=== PATIENT | male | born 1955 | race Hispanic/Latino ===

== ENCOUNTER 2019-04-06 15:36 | Emergency (ER) | payer OTHER ==
--- OUTSIDE RECORDS SUMMARY | 2019-04-06 15:39 | XMS REPORT | Clinical Summary ---
:1955 Author Organization [facility] Address [address] [place] [address] Care Team Providers Name Role Phone Pcp, No Primary Care Provider Unavailable Jamie Jordan Unavailable Allergies No Known Allergies Medications Medication Sig Dispensed Refills Start Date End Date Status metFORMIN Take 500 mg by 0 Active (GLUCOPHAGE) 1000 mouth 2 (two) times MG tablet daily with breakfast and dinner . rosuvastatin Take 10 mg by mouth 0 Active (CRESTOR) 10 MG nightly . tablet linagliptin Take 5 mg by mouth 0 Active (TRADJENTA) 5 mg daily. Tab exenatide Inject 0 Active microspheres subcutaneously (BYDUREON SUBQ) every 7 days. aspirin 81 MG EC Take 1 tablet (81 30 tablet 0 10/23/2018 11/23/19 tablet mg total) by mouth 19 daily for 30 days. colchicine Take 1 tablet (0.6 14 tablet 0 10/23/2018 10/22/19 Discontinued (COLCRYS) 0.6 mg mg total) by mouth 19 tablet daily for 14 days. metoprolol 75 mg Take 75 mg by mouth 60 tablet 0 10/22/2018 10/22/19 Discontinued Tab 2 (two) times daily 19 for 30 days. colchicine Take 1 tablet (0.6 14 tablet 0 10/23/2018 11/07/19 (COLCRYS) 0.6 mg mg total) by mouth 19 tablet daily for 14 days. metoprolol Take 75 mg by mouth 60 tablet 0 10/22/2018 11/22/19 tartrate 75 mg 2 (two) times daily 19 Tab for 30 days. acetaminophen-cod Take 1 tablet by 30 tablet 0 10/22/2018 11/01/19 eine (TYLENOL #4) mouth every 4 19 300-60 mg per (four) hours as tablet needed for Pain for up to 10 days. Max Daily Amount: 6 tablets Active Problems Problem Noted Date Hyperlipidemia 10/19/2018 Hypotension 10/18/2018 S/P CABG x 3 10/17/2018 NSTEMI (non-ST elevated myocardial infarction) 10/15/2018 Type 2 diabetes mellitus with complication, without long-term current use 07/2019 of insulin Elevated troponin level 10/14/2018 Acute midline thoracic back pain 10/14/2018 Encounters Date Type Specialty Care Team Description 10/31/2018 Office Visit Cardiology Pantera Mary Postoperative state MD Taylor (Primary Dx) 10/17/2018 Anesthesia Event Nura Arellano 10/17/2018 Surgery [facility] Mary BYPASS,AORTO MD Taylor CORONARY YVONNE/SVG 10/15/2018 Surgery Ad Live L CATH & PCI 10/14/2018 - Hospital Encounter Cardiology Christo Banda Elevated troponin level (Primary Dx); 10/22/2018 MD Alexis Other acute back pain; Deedee Ivis Epigastric pain; Ivana Lorenzo, Acute midline thoracic back pain; NSTEMI (non-ST elevated myocardial infarction) (HCC); Steven Conway Type 2 diabetes mellitus with complication, without long- term current use of insulin (HCC); MD Kathya S/P CABG x 3; Joanne Fischer, Hypotension due to hypovolemia; Post-op pain; Steffen, Fever, unspecified fever cause; Ion Gregg MD 10/14/2018 Orders Only General Internal Medicine 10/14/2018 Travel after 04/05/2018 Family History Medical History Relation Name Comments Heart disease Father Heart disease Mother Stroke Mother Relation Name Status Comments Father Mother Social History Tobacco Use Types Packs/Day Years Used Date Former Smoker 0.75 12 Smokeless Tobacco: Never Used Comments: Quit 30 years ago Alcohol Use Drinks/Week oz/Week Comments Yes occasionally Sex Assigned at Date Recorded Not on file Job Start Date Occupation Industry Not on file Not on file Not on file Travel History Travel Start Travel End No recent travel history available. Last Filed Vital Signs Vital Sign Reading Time Taken Blood Pressure 114/73 10/31/2018 9:58 AM PROGRESS CLERK Pulse 61 10/31/2018 9:58 AM PROGRESS CLERK Temperature 36.2 C (97.2 F) 10/31/2018 9:58 AM PROGRESS CLERK Respiratory Rate 14 10/31/2018 9:58 AM PROGRESS CLERK Oxygen Saturation 95% 10/31/2018 9:58 AM PROGRESS CLERK Inhaled Oxygen Concentration 40% 10/17/2018 8:24 PM PROGRESS CLERK Weight 92.1 kg (203 lb) 10/31/2018 9:58 AM PROGRESS CLERK Height 175.3 cm (5' 9") 10/31/2018 9:58 AM PROGRESS CLERK Body Mass Index 29.98 10/31/2018 9:58 AM PROGRESS CLERK Plan of Treatment Not on file Procedures Procedure Name Priority Date/Time Associated Diagnosis Comments RHYTHM STRIP - SCAN 12/05/2018 5:53 PM CDT REPORT OF PROCEDURE - 10/29/2018 3:21 ENDOSCOPY SCAN PM PROGRESS CLERK CARDIAC CATH REPORT - 10/29/2018 3:21 SCAN PM PROGRESS CLERK RHYTHM STRIP - SCAN 10/29/2018 3:21 PM PROGRESS CLERK VASCULAR DIAGRAM -SCAN 10/29/2018 3:21 PM PROGRESS CLERK VASCULAR DIAGRAM -SCAN 10/29/2018 3:21 PM PROGRESS CLERK VASCULAR DIAGRAM -SCAN 10/26/2018 4:10 PM PROGRESS CLERK POCT-GLUCOSE METER Routine 10/22/2018 12:36 Results for this PM PROGRESS CLERK procedure are in the results section. POCT-GLUCOSE METER Routine 10/22/2018 8:12 Results for this AM PROGRESS CLERK procedure are in the results section. CBC W/PLT COUNT & AUTO Routine 10/22/2018 4:21 Results for this DIFFERENTIAL AM PROGRESS CLERK procedure are in the results section. BASIC METABOLIC PANEL Routine 10/22/2018 4:21 Results for this (7) AM PROGRESS CLERK procedure are in the results section. CBC W/PLT COUNT & AUTO Routine 10/22/2018 4:21 Results for this DIFFERENTIAL AM PROGRESS CLERK procedure are in the results section. POCT-GLUCOSE METER Routine 10/21/2018 9:30 Results for this PM PROGRESS CLERK procedure are in the results section. ECHOCARDIOGRAM REPORT 10/21/2018 7:00 - SCAN PM PROGRESS CLERK POCT-GLUCOSE METER Routine 10/21/2018 6:35 Results for this PM PROGRESS CLERK procedure are in the results section. POCT-GLUCOSE METER Routine 10/21/2018 12:19 Results for this PM PROGRESS CLERK procedure are in the results section. XR CHEST 1 VIEW ALISSON 10/21/2018 12:14 Results for this PORTABLE/BEDSIDE PM PROGRESS CLERK procedure are in the results section. 2D ECHO W/ DOPPLER Routine 10/21/2018 9:23 Results for this (CW/PW/COLOR) AM PROGRESS CLERK procedure are in the results section. POCT-GLUCOSE METER Routine 10/21/2018 8:01 Results for this AM PROGRESS CLERK procedure are in the results section. CBC W/PLT COUNT & AUTO STAT 10/21/2018 6:36 Results for this DIFFERENTIAL AM PROGRESS CLERK procedure are in the results section. MAGNESIUM STAT 10/21/2018 6:36 Results for this AM PROGRESS CLERK procedure are in the results section. BASIC METABOLIC PANEL STAT 10/21/2018 6:36 Results for this (7) AM PROGRESS CLERK procedure are in the results section. CBC W/PLT COUNT & AUTO STAT 10/21/2018 6:36 Results for this DIFFERENTIAL AM PROGRESS CLERK procedure are in the results section. ECG 12-LEAD Routine 10/21/2018 5:50 Results for this AM PROGRESS CLERK procedure are in the results section. POCT-GLUCOSE METER Routine 10/20/2018 9:16 Results for this PM PROGRESS CLERK procedure are in the results section. POCT-GLUCOSE METER Routine 10/20/2018 6:47 Results for this PM PROGRESS CLERK procedure are in the results section. TRANSFUSION SERVICE 10/20/2018 6:00 REPORT - SCAN PM PROGRESS CLERK POCT-GLUCOSE METER Routine 10/20/2018 1:38 Results for this PM PROGRESS CLERK procedure are in the results section. POCT-GLUCOSE METER Routine 10/20/2018 7:51 Results for this AM PROGRESS CLERK procedure are in the results section. CBC W/PLT COUNT & AUTO Routine 10/20/2018 6:04 Results for this DIFFERENTIAL AM PROGRESS CLERK procedure are in the results section. MAGNESIUM Routine 10/20/2018 6:04 Results for this AM PROGRESS CLERK procedure are in the results section. BASIC METABOLIC PANEL Routine 10/20/2018 6:04 Results for this (7) AM PROGRESS CLERK procedure are in the results section. CBC W/PLT COUNT & AUTO Routine 10/20/2018 6:04 Results for this DIFFERENTIAL AM PROGRESS CLERK procedure are in the results section. PREPARE LEUKO-REDUCED STAT 10/19/2018 11:54 Results for this RBC PM PROGRESS CLERK procedure are in the results section. POCT-GLUCOSE METER Routine 10/19/2018 11:05 Results for this PM PROGRESS CLERK procedure are in the results section. POCT-GLUCOSE METER Routine 10/19/2018 6:14 Results for this PM PROGRESS CLERK procedure are in the results section. POCT-GLUCOSE METER Routine 10/19/2018 12:17 Results for this PM PROGRESS CLERK procedure are in the results section. XR CHEST 1 VIEW ALISSON 10/19/2018 9:27 Results for this PORTABLE/BEDSIDE AM PROGRESS CLERK procedure are in the results section. POCT-GLUCOSE METER Routine 10/19/2018 8:18 Results for this AM PROGRESS CLERK procedure are in the results section. ECG 12-LEAD Routine 10/19/2018 7:53 Results for this AM PROGRESS CLERK procedure are in the results section. BASIC METABOLIC PANEL STAT 10/19/2018 6:21 Results for this (7) AM PROGRESS CLERK procedure are in the results section. CBC (HEMOGRAM ONLY) Routine 10/19/2018 6:21 Results for this AM PROGRESS CLERK procedure are in the results section. PHOSPHORUS Routine 10/19/2018 6:21 Results for this AM PROGRESS CLERK procedure are in the results section. MAGNESIUM Routine 10/19/2018 6:21 Results for this AM PROGRESS CLERK procedure are in the results section. POCT-GLUCOSE METER Routine 10/18/2018 9:02 Results for this PM PROGRESS CLERK procedure are in the results section. XR CHEST 1 VIEW STAT 10/18/2018 8:35 Results for this PORTABLE/BEDSIDE PM PROGRESS CLERK procedure are in the results section. POCT-GLUCOSE METER Routine 10/18/2018 7:21 Results for this PM PROGRESS CLERK procedure are in the results section. TRANSFUSION SERVICE 10/18/2018 6:04 REPORT - SCAN PM PROGRESS CLERK POCT-GLUCOSE METER Routine 10/18/2018 1:52 Results for this PM PROGRESS CLERK procedure are in the results section. POCT-GLUCOSE METER Routine 10/18/2018 12:01 Results for this PM PROGRESS CLERK procedure are in the results section. POCT-GLUCOSE METER Routine 10/18/2018 11:08 Results for this AM PROGRESS CLERK procedure are in the results section. POCT-GLUCOSE METER Routine 10/18/2018 9:55 Results for this AM PROGRESS CLERK procedure are in the results section. POCT-GLUCOSE METER Routine 10/18/2018 9:22 Results for this AM PROGRESS CLERK procedure are in the results section. POCT-GLUCOSE METER Routine 10/18/2018 7:16 Results for this AM PROGRESS CLERK procedure are in the results section. MN INSERT Routine 10/18/2018 7:05 Hypotension due to Results for this CATH,ART,PERCUT,CHRISTELLE AM PROGRESS CLERK hypovolemia procedure are in ERM the results section. POCT-GLUCOSE METER Routine 10/18/2018 6:16 Results for this AM PROGRESS CLERK procedure are in the results section. CBC W/PLT COUNT & AUTO STAT 10/18/2018 5:11 Results for this DIFFERENTIAL AM PROGRESS CLERK procedure are in the results section. BASIC METABOLIC PANEL STAT 10/18/2018 5:11 Results for this (7) AM PROGRESS CLERK procedure are in the results section. PHOSPHORUS Routine 10/18/2018 5:11 Results for this AM PROGRESS CLERK procedure are in the results section. GLUCOSE STAT 10/18/2018 5:11 Results for this AM PROGRESS CLERK procedure are in the results section. MAGNESIUM STAT 10/18/2018 5:11 Results for this AM PROGRESS CLERK procedure are in the results section. BLOOD GAS, ARTERIAL STAT 10/18/2018 5:11 Results for this AM PROGRESS CLERK procedure are in the results section. CBC W/PLT COUNT & AUTO STAT 10/18/2018 5:11 Results for this DIFFERENTIAL AM PROGRESS CLERK procedure are in the results section. COMPREHENSIVE STAT 10/18/2018 5:11 Results for this METABOLIC PANEL AM PROGRESS CLERK procedure are in the results section. POCT-GLUCOSE METER Routine 10/18/2018 5:10 Results for this AM PROGRESS CLERK procedure are in the results section. TRANSFUSE STAT 10/18/2018 4:32 LEUKO-REDUCED RED AM PROGRESS CLERK BLOOD CELLS XR CHEST 1 VIEW Routine 10/18/2018 4:15 Results for this PORTABLE/BEDSIDE AM PROGRESS CLERK procedure are in the results section. POCT-GLUCOSE METER Routine 10/18/2018 2:56 Results for this AM PROGRESS CLERK procedure are in the results section. POCT-GLUCOSE METER Routine 10/18/2018 1:42 Results for this AM PROGRESS CLERK procedure are in the results section. XR CHEST 1 VIEW STAT 10/18/2018 12:19 Results for this PORTABLE/BEDSIDE AM PROGRESS CLERK procedure are in the results section. POCT-GLUCOSE METER Routine 10/17/2018 11:28 Results for this PM PROGRESS CLERK procedure are in the results section. HEMOGLOBIN AND STAT 10/17/2018 10:27 Results for this HEMATOCRIT PM PROGRESS CLERK procedure are in the results section. BLOOD GAS, ARTERIAL STAT 10/17/2018 10:00 Results for this PM PROGRESS CLERK procedure are in the results section. POCT-GLUCOSE METER Routine 10/17/2018 9:38 Results for this PM PROGRESS CLERK procedure are in the results section. MAGNESIUM STAT 10/17/2018 9:26 Results for this PM PROGRESS CLERK procedure are in the results section. POCT-GLUCOSE METER Routine 10/17/2018 9:05 Results for this PM PROGRESS CLERK procedure are in the results section. MAGNESIUM STAT 10/17/2018 8:50 Results for this PM PROGRESS CLERK procedure are in the results section. POCT-GLUCOSE METER Routine 10/17/2018 8:02 Results for this PM PROGRESS CLERK procedure are in the results section. CALCIUM, IONIZED STAT 10/17/2018 7:34 Results for this PM PROGRESS CLERK procedure are in the results section. HGB/HCT (H&H) - STAT STAT 10/17/2018 7:33 Results for this LAB PM PROGRESS CLERK procedure are in the results section. GLUCOSE-STAT LAB STAT 10/17/2018 7:33 Results for this PM PROGRESS CLERK procedure are in the results section. POTASSIUM-STAT LAB STAT 10/17/2018 7:33 Results for this PM PROGRESS CLERK procedure are in the results section. SODIUM NA-STAT LAB STAT 10/17/2018 7:33 Results for this PM PROGRESS CLERK procedure are in the results section. BLOOD GAS, ARTERIAL STAT 10/17/2018 7:33 Results for this PM PROGRESS CLERK procedure are in the results section. RRL CRITICAL LABS STAT 10/17/2018 7:33 Results for this (ABG,NA,K,H&H,GLUCOSE) PM PROGRESS CLERK procedure are in the results section. BLOOD GAS, ARTERIAL STAT 10/17/2018 6:25 Results for this PM PROGRESS CLERK procedure are in the results section. HEMOGLOBIN AND STAT 10/17/2018 6:25 Results for this HEMATOCRIT PM PROGRESS CLERK procedure are in the results section. BLOOD GAS, ARTERIAL STAT 10/17/2018 5:14 Results for this PM PROGRESS CLERK procedure are in the results section. POCT-GLUCOSE METER Routine 10/17/2018 4:45 Results for this PM PROGRESS CLERK procedure are in the results section. LACTIC ACID, ARTERIAL Routine 10/17/2018 2:44 Results for this PM PROGRESS CLERK procedure are in the results section. OXYGEN SATURATION, ALISSON 10/17/2018 2:44 Results for this MEASURED PM PROGRESS CLERK procedure are in the results section. CBC W/PLT COUNT & AUTO STAT 10/17/2018 2:29 Results for this DIFFERENTIAL PM PROGRESS CLERK procedure are in the results section. CBC W/PLT COUNT & AUTO STAT 10/17/2018 2:29 Results for this DIFFERENTIAL PM PROGRESS CLERK procedure are in the results section. PHOSPHORUS STAT 10/17/2018 2:29 Results for this PM PROGRESS CLERK procedure are in the results section. MAGNESIUM STAT 10/17/2018 2:29 Results for this PM PROGRESS CLERK procedure are in the results section. BLOOD GAS, ARTERIAL STAT 10/17/2018 2:29 Results for this PM PROGRESS CLERK procedure are in the results section. BASIC METABOLIC PANEL STAT 10/17/2018 2:29 Results for this (7) PM PROGRESS CLERK procedure are in the results section. XR CHEST 1 VIEW STAT 10/17/2018 2:18 Results for this PORTABLE/BEDSIDE PM PROGRESS CLERK procedure are in the results section. HGB/HCT (H&H) - STAT STAT 10/17/2018 1:26 Results for this LAB PM PROGRESS CLERK procedure are in the results section. GLUCOSE-STAT LAB STAT 10/17/2018 1:26 Results for this PM PROGRESS CLERK procedure are in the results section. POTASSIUM-STAT LAB STAT 10/17/2018 1:26 Results for this PM PROGRESS CLERK procedure are in the results section. SODIUM NA-STAT LAB STAT 10/17/2018 1:26 Results for this PM PROGRESS CLERK procedure are in the results section. BLOOD GAS, ARTERIAL STAT 10/17/2018 1:26 Results for this PM PROGRESS CLERK procedure are in the results section. CALCIUM, IONIZED STAT 10/17/2018 1:26 Results for this PM PROGRESS CLERK procedure are in the results section. RRL CRITICAL LABS STAT 10/17/2018 1:26 Results for this (ABG,NA,K,H&H,GLUCOSE) PM PROGRESS CLERK procedure are in the results section. POCT-ACT Routine 10/17/2018 1:25 Results for this PM PROGRESS CLERK procedure are in the results section. POCT-ACT Routine 10/17/2018 12:34 Results for this PM PROGRESS CLERK procedure are in the results section. HGB/HCT (H&H) - STAT STAT 10/17/2018 12:31 Results for this LAB PM PROGRESS CLERK procedure are in the results section. GLUCOSE-STAT LAB STAT 10/17/2018 12:31 Results for this PM PROGRESS CLERK procedure are in the results section. POTASSIUM-STAT LAB STAT 10/17/2018 12:31 Results for this PM PROGRESS CLERK procedure are in the results section. SODIUM NA-STAT LAB STAT 10/17/2018 12:31 Results for this PM PROGRESS CLERK procedure are in the results section. BLOOD GAS, ARTERIAL STAT 10/17/2018 12:31 Results for this PM PROGRESS CLERK procedure are in the results section. RRL CRITICAL LABS STAT 10/17/2018 12:31 Results for this (ABG,NA,K,H&H,GLUCOSE) PM PROGRESS CLERK procedure are in the results section. POCT-ACT Routine 10/17/2018 12:03 Results for this PM PROGRESS CLERK procedure are in the results section. HGB/HCT (H&H) - STAT STAT 10/17/2018 11:59 Results for this LAB AM PROGRESS CLERK procedure are in the results section. GLUCOSE-STAT LAB STAT 10/17/2018 11:59 Results for this AM PROGRESS CLERK procedure are in the results section. POTASSIUM-STAT LAB STAT 10/17/2018 11:59 Results for this AM PROGRESS CLERK procedure are in the results section. SODIUM NA-STAT LAB STAT 10/17/2018 11:59 Results for this AM PROGRESS CLERK procedure are in the results section. BLOOD GAS, ARTERIAL STAT 10/17/2018 11:59 Results for this AM PROGRESS CLERK procedure are in the results section. RRL CRITICAL LABS STAT 10/17/2018 11:59 Results for this (ABG,NA,K,H&H,GLUCOSE) AM PROGRESS CLERK procedure are in the results section. POCT-ACT Routine 10/17/2018 11:42 Results for this AM PROGRESS CLERK procedure are in the results section. HGB/HCT (H&H) - STAT STAT 10/17/2018 11:08 Results for this LAB AM PROGRESS CLERK procedure are in the results section. GLUCOSE-STAT LAB STAT 10/17/2018 11:08 Results for this AM PROGRESS CLERK procedure are in the results section. POTASSIUM-STAT LAB STAT 10/17/2018 11:08 Results for this AM PROGRESS CLERK procedure are in the results section. SODIUM NA-STAT LAB STAT 10/17/2018 11:08 Results for this AM PROGRESS CLERK procedure are in the results section. BLOOD GAS, ARTERIAL STAT 10/17/2018 11:08 Results for this AM PROGRESS CLERK procedure are in the results section. CALCIUM, IONIZED STAT 10/17/2018 11:08 Results for this AM PROGRESS CLERK procedure are in the results section. RRL CRITICAL LABS STAT 10/17/2018 11:08 Results for this (ABG,NA,K,H&H,GLUCOSE) AM PROGRESS CLERK procedure are in the results section. ENDOSCOPIC 10/17/2018 9:29 Coronary artery HARVEST,VEIN AM PROGRESS CLERK disease without angina pectoris, unspecified vessel or lesion type, unspecified whether la posta or transplanted heart Case Notes 2.5 HRS PER GABRIEL Special Needs (WANTS THIS CASE 1ST AT 10:00AM) BYPASS,AORTO CORONARY YVONNE/SVG 10/17/2018 9:29 AM PROGRESS CLERK Coronary artery disease without angina pectoris, unspecified vessel or lesion type, unspecified whether la posta or transplanted heart Case Notes 2.5 HRS PER GABRIEL Special Needs (WANTS THIS CASE 1ST AT 10:00AM) POCT-GLUCOSE METER Routine 10/17/2018 7:41 Results for this AM PROGRESS CLERK procedure are in the results section. APTT Routine 10/17/2018 4:18 Results for this AM PROGRESS CLERK procedure are in the results section. PLATELET COUNT Routine 10/17/2018 4:02 Results for this AM PROGRESS CLERK procedure are in the results section. BASIC METABOLIC PANEL Routine 10/17/2018 4:02 Results for this (7) AM PROGRESS CLERK procedure are in the results section. POCT-GLUCOSE METER Routine 10/16/2018 9:14 Results for this PM PROGRESS CLERK procedure are in the results section. PROTHROMBIN TIME/INR Routine 10/16/2018 6:38 Results for this PM PROGRESS CLERK procedure are in the results section. APTT Routine 10/16/2018 6:38 Results for this PM PROGRESS CLERK procedure are in the results section. POCT-GLUCOSE METER Routine 10/16/2018 6:16 Results for this PM PROGRESS CLERK procedure are in the results section. TRANSFUSION SERVICE 10/16/2018 6:00 REPORT - SCAN PM PROGRESS CLERK URINALYSIS W/ Routine 10/16/2018 5:29 Results for this MICROSCOPIC PM PROGRESS CLERK procedure are in the results section. CAROTID DOPPLER Routine 10/16/2018 3:13 Results for this BILATERAL PM PROGRESS CLERK procedure are in the results section. POCT-GLUCOSE METER Routine 10/16/2018 12:52 Results for this PM PROGRESS CLERK procedure are in the results section. APTT Routine 10/16/2018 12:43 Results for this PM PROGRESS CLERK procedure are in the results section. POCT-GLUCOSE METER Routine 10/16/2018 7:22 Results for this AM PROGRESS CLERK procedure are in the results section. PLATELET COUNT Routine 10/16/2018 5:29 Results for this AM PROGRESS CLERK procedure are in the results section. APTT Routine 10/16/2018 5:29 Results for this AM PROGRESS CLERK procedure are in the results section. BASIC METABOLIC PANEL Routine 10/16/2018 5:29 Results for this (7) AM PROGRESS CLERK procedure are in the results section. POCT-GLUCOSE METER Routine 10/16/2018 5:27 Results for this AM PROGRESS CLERK procedure are in the results section. POCT-GLUCOSE METER Routine 10/15/2018 11:34 Results for this PM PROGRESS CLERK procedure are in the results section. APTT Routine 10/15/2018 11:18 Results for this PM PROGRESS CLERK procedure are in the results section. TROPONIN I Routine 10/15/2018 6:45 Results for this PM PROGRESS CLERK procedure are in the results section. ECHOCARDIOGRAM REPORT - 10/15/2018 6:20 SCAN PM PROGRESS CLERK POCT-GLUCOSE METER Routine 10/15/2018 5:24 Results for this PM PROGRESS CLERK procedure are in the results section. 2D ECHO W/ DOPPLER Routine 10/15/2018 3:20 Results for this (CW/PW/COLOR) PM PROGRESS CLERK procedure are in the results section. L CATH & PCI 10/15/2018 12:14 Coronary artery PM PROGRESS CLERK disease involving la posta heart with angina pectoris, unspecified vessel or lesion type (HCC) TROPONIN I Routine 10/15/2018 9:17 Results for this AM PROGRESS CLERK procedure are in the results section. APTT Routine 10/15/2018 9:17 Results for this AM PROGRESS CLERK procedure are in the results section. ABORH, MANUAL STAT 10/15/2018 6:08 Results for this AM PROGRESS CLERK procedure are in the results section. TROPONIN I Routine 10/15/2018 6:08 Results for this AM PROGRESS CLERK procedure are in the results section. POCT-GLUCOSE METER Routine 10/15/2018 5:58 Results for this AM PROGRESS CLERK procedure are in the results section. ECG 12-LEAD Routine 10/15/2018 5:57 Results for this AM PROGRESS CLERK procedure are in the results section. ECG 12-LEAD Routine 10/15/2018 5:57 AM PROGRESS CLERK Procedure Note - Interface, External Ris In - 10/15/2018 6:05 AM PROGRESS CLERK Ventricular Rate 73 BPM Atrial Rate 73 BPM P-R Interval 136 ms QRS Duration 82 ms Q-T Interval 414 ms QTC Calculation(Bazett) 456 ms P [place] 45 degrees R [place] 32 degrees T [place] 51 degrees Normal sinus rhythm Normal ECG When compared with ECG of 14-OCT-2018 22:56, No significant change was found TYPE AND SCREEN, AUTOMATED Routine 10/15/2018 2:19 AM PROGRESS CLERK APTT Routine 10/15/2018 2:19 AM PROGRESS CLERK LIPID PANEL Routine 10/15/2018 2:19 AM PROGRESS CLERK BASIC METABOLIC PANEL (7) Routine 10/15/2018 2:19 AM PROGRESS CLERK CBC W/PLT COUNT & AUTO Routine 10/15/2018 12:07 AM PROGRESS CLERK Results for this DIFFERENTIAL procedure are in the results section. B-TYPE NATRIURETIC FACTOR Routine 10/15/2018 12:07 AM PROGRESS CLERK Results for this (BNP) procedure are in the results section. TSH/FREE T4 IF INDICATED Routine 10/15/2018 12:07 AM PROGRESS CLERK CBC W/PLT COUNT & AUTO Routine 10/15/2018 12:07 AM PROGRESS CLERK Results for this DIFFERENTIAL procedure are in the results section. MAGNESIUM Routine 10/15/2018 12:07 AM PROGRESS CLERK HEMOGLOBIN A1C Routine 10/15/2018 12:07 AM PROGRESS CLERK TROPONIN I Routine 10/15/2018 12:07 AM PROGRESS CLERK ECG 12-LEAD Routine 10/14/2018 10:56 PM PROGRESS CLERK ECG 12-LEAD Routine 10/14/2018 10:56 PM PROGRESS CLERK Procedure Note - Interface, External Ris In - 10/14/2018 11:03 PM PROGRESS CLERK Ventricular Rate 80 BPM Atrial Rate 80 BPM P-R Interval 132 ms QRS Duration 80 ms Q-T Interval 408 ms QTC Calculation(Bazett) 470 ms P [place] 26 degrees R [place] 29 degrees T [place] 49 degrees Normal sinus rhythm Normal ECG No previous ECGs available XR CHEST 2 VIEWS STAT 10/14/2018 6:46 PM PROGRESS CLERK POCT CBC (HEMOGRAM) Routine 10/14/2018 6:30 PM PROGRESS CLERK POCT RAPID TROPONIN I Routine 10/14/2018 6:30 PM PROGRESS CLERK POCT BASIC METABOLIC PANEL Routine 10/14/2018 6:30 PM PROGRESS CLERK ECG 12-LEAD Routine 10/14/2018 6:24 PM PROGRESS CLERK after 04/05/2018 Results RHYTHM STRIP - SCAN (12/05/2018 5:53 PM CDT)Only the most recent of2 resultswithin the time period is included. Narrative Performed At EKG-SCANNED (10/29/2018 3:21 PM PROGRESS CLERK) Narrative Performed At CARDIAC CATH REPORT - SCAN (10/29/2018 3:21 PM PROGRESS CLERK) Narrative Performed At VASCULAR DIAGRAM -SCAN (10/29/2018 3:21 PM PROGRESS CLERK)Only the most recent of3 resultswithin the time period is included. Narrative Performed At POC-Glucose meter (10/22/2018 12:36 PM PROGRESS CLERK)Only the most recent of40 resultswithin the time period is included. POC-Glucose Meter 165 (H)Comment: TESTED AT 70 - 110 mg/dL [address] [address] Specimen Blood Performing Organization Address City/State/Zipcode Phone Number [address] [address] CENTER CBC with platelet count + automated diff (10/22/2018 4:21 AM PROGRESS CLERK)Only the most recent of6 resultswithin the time period is included. WBC 5.1 3.5 - 10.5 K/L [facility] RBC 4.22 (L) 4.63 - 6.08 M/L [facility] Hemoglobin 12.9 (L) 13.7 - 17.5 GM/DL [facility] Hematocrit 39.4 (L) 40.1 - 51.0 % [facility] MCV 93.4 (H) 79.0 - 92.2 fL [facility] MCH 30.6 25.7 - 32.2 pg [facility] MCHC 32.7 32.3 - 36.5 GM/DL [facility] RDW 13.3 11.6 - 14.4 % [facility] Platelets 294 150 - 450 K/CU MM [facility] MPV 9.0 (L) 9.4 - 12.4 fL [facility] nRBC 0 0 - 0 /100 WBC [facility] % Neutros 52 % [facility] % Lymphs 28 % [facility] % Monos 12 % [facility] % Eos 6 % [facility] % Baso 1 % [facility] # Neutros 2.69 1.78 - 5.38 K/L [facility] # Lymphs 1.43 1.32 - 3.57 K/L [facility] # Monos 0.63 0.30 - 0.82 K/L [facility] # Eos 0.33 0.04 - 0.54 K/L [facility] # Baso 0.04 0.01 - 0.08 K/L [facility] Immature Granulocytes-Relative 0 0 - 1 % [facility] Specimen Blood Performing Organization Address City/State/Zipcode Phone Number [facility] [address] [place] [address] CENTER Basic Metabolic Panel (10/22/2018 4:21 AM PROGRESS CLERK)Only the most recent of9 resultswithin the time period is included. Sodium 138 136 - 145 meq/L [facility] Potassium 3.6 3.5 - 5.1 meq/L [facility] Chloride 105 98 - 107 meq/L [facility] CO2 23 22 - 29 meq/L [facility] BUN 9 7 - 21 mg/dL [facility] Creatinine 0.76 0.57 - 1.25 mg/dL [facility] Glucose 139 (H) 70 - 105 mg/dL [facility] Calcium 8.7 8.4 - 10.2 mg/dL [facility] EGFR Comment: INSUFFICIENT CLINICAL mL/min/1.73 sq m [facility] DATA TO CALCULATE ESTIMATED [facility] GFR. Specimen Blood Performing Organization Address City/State/Zipcode Phone Number [facility] [address] [place] [address] [phone] CENTER ECHOCARDIOGRAM REPORT - SCAN (10/21/2018 7:00 PM PROGRESS CLERK) Narrative Performed At XR chest 1 view portable / bedside (10/21/2018 12:14 PM PROGRESS CLERK)Only the most recent of6 resultswithin the time period is included. Specimen Narrative Performed At FINAL REPORT [facility] TECHNIQUE: Frontal view of the chest. INDICATION: 63-year-old man with wheezing. COMPARISON: Chest radiograph 10/19/2018. FINDINGS: LINES/TUBES: None. LUNGS: Persistent low lung volumes with streaky bibasilar atelectasis. No new consolidation or pulmonary edema. PLEURA: No pneumothorax or significant pleural effusion. HEART AND MEDIASTINUM: The cardiomediastinal silhouette is unchanged. Atherosclerotic calcifications in the thoracic aorta. SOFT TISSUES AND BONES: Unremarkable. IMPRESSION: No significant change since 10/19/2018. Signed: Sherwin Kohli MD Report Verified Date/Time:10/21/2018 13:58:52 Reading Location: [address] Ortho Consult Reading Room Procedure Note Interface, External Ris In - 10/21/2018 2:01 PM PROGRESS CLERK FINAL REPORT TECHNIQUE: Frontal view of the chest. INDICATION: 63-year-old man with wheezing. COMPARISON: Chest radiograph 10/19/2018. FINDINGS: LINES/TUBES: None. LUNGS: Persistent low lung volumes with streaky bibasilar atelectasis. No new consolidation or pulmonary edema. PLEURA: No pneumothorax or significant pleural effusion. HEART AND MEDIASTINUM: The cardiomediastinal silhouette is unchanged. Atherosclerotic calcifications in the thoracic aorta. SOFT TISSUES AND BONES: Unremarkable. IMPRESSION: No significant change since 10/19/2018. Signed: Sherwin Kohli MD Report Verified Date/Time: 10/21/2018 13:58:52 Reading Location: [facility] B1 [id number] Ortho Consult Reading Room Performing Organization Address City/State/Zipcode Phone Number GE RIS 2D Echo W/Doppler(CW/PW/Color) (10/21/2018 9:23 AM PROGRESS CLERK) Ejection Fraction [facility] Specimen Narrative Performed At Transthoracic Echocardiography Report (TTE) [facility] Demographics Patient Name CALVIN, Date of Study 10/21/2018 DAVIN [id number] GenderMale Visit Number [id number] Unknown [id number] Room Number 1118 Number Date of Birth1955Referring Physician Dana Martinez MD Age63 year(s)Clinical Marketing Manager Pelon Felton [facility] AnalystIzoAnnika Hernandez MD Procedure Type of Study TTE procedure:2DECHO W DOPPLER(CW/PW/COLOR) (Routine) Indications:Coronary artery disease. Height: 69 inches Weight: 95.25 kg (210 lbs) BSA: 2.11 m^2 BMI: 31.01 kg/m^2 HR: 105 bpm BP: 114/72 mmHg Summary The left ventricle is chamber size (by PSLAX dimension) is normal (male - LVIDd 4.2-5.8cm) . Normal LV wall thickness. Septal motion is abnormal, likely related to prior cardiac surgery . The other segments contract normally. Global LV systolic function normal . Estimated LVEF by qualitative assessment is normal (>60%) . LV endocardium is adequately visualized with IV ultrasound enhancing agent. Grade 1 diastolic dysfunction (impaired relaxation and low-normal LA pressure). Normal (cardiac index 2-3 L/min/m2) cardiac output state at rest is noted. No significant pericardial effusion is visualized. Technically fair exam. Previous Study In comparison with the prior exam on 10-15-18 there are no significant changes. Signature Findings Left Ventricle The left ventricle is chamber size (by PSLAX di mension) is normal (male - LVIDd 4.2-5.8cm) . No rmal LV wall thickness. Septal motion is ab normal, likely related to prior cardiac surgery . Th e other segments contract normally. Global LV sy stolic function normal . Estimated LVEF by qu alitative assessment is normal (>60%) . LV en docardium is adequately visualized with IV ul trasound enhancing agent. Grade 1 diastolic dy sfunction (impaired relaxation and low-normal LA pr essure). Normal (cardiac index 2-3 L/min/m2) ca rdiac output state at rest is noted. Left AtriumLA size is normal (16-34 ml/m2) . Right VentricleRV chamber size is mildly enlarged . Gl obal RV systolic function is normal . Right Atrium RA cavity size is normal . Aortic Valve Normal AoV structure and function. Mitral Valve Mild MV leaflet thickening. Mi ld mitral annular calcification. Tricuspid ValveUnable to estimate peak systolic PA pressure; in adequate TR velocity signal. No evidence of tricuspid regurgitation. Pulmonic Valve Normal PV structure and function by limited views an d Doppler. A trace of pulmonary regurgitation. AortaAortic root size (SInus of Valsalva diameter) is izaiah rderline dilated . PericardiumNo significant pericardial effusion is visualized. IVC/SVC/PA/PV/PleuralThe estimated RA pressure by IVC dynamics in determinate . Th e inferior vena cava is not visualized. Chambers/Structures Left Atrium LA Volume: 51.63 ml LA Area: 19.95 cm^2 LA Vol. Index: 24 ml/m^2 Left Ventricle LVIDd: 4.48 cm LV Septum Diastolic: 0.96 cm LV PW Diastolic: 0.87 cm LVOT Diameter: 2.17 cm Aorta Ao Root S of Stacey.: 3.55 cm Doppler/Quantitative Measurements Mitral Valve MV Peak E-Wave: 0.56 m/sMV Peak A-Wave: 0.9 m/s E/A Ratio: 0.62 Peak Gradient: 1.25 mmHg Deceleration Time: 262 msec MV Lucas. Peak: Tissue Doppler E' Lateral Velocity: 0.11 m/s E/E': 5.07 LVOT Peak Velocity: 1.01 m/sPeak Gradient: 4.1 mmHg Mean Velocity: 0.69 m/sMean Gradient: 2.1 mmHg LVOT Diameter: 2.17 cm LVOT VTI: 16.05 cm LVOT Area: 3.7 cm^2LVOT SV:59.33 ml LVOT CO: 6.23 l/minLVOT CI: 2.95 l/min/m^2 Procedure Note Interface, External Ris In - 10/21/2018 6:07 PM PROGRESS CLERK Transthoracic Echocardiography Report (TTE) Demographics Patient Name [facility], Date of Study 10/21/2018 DAVIN Gender Male Visit Number [id number] Race Unknown Room Number 1118 Number Date of 1955 Referring Physician Dana Martinez MD Age 63 year(s) Clinical Marketing Manager Pelon Felton [facility] Bonbon Dipper Danni Gary Interpreting Annika Light Physician Procedure Type of Study TTE procedure:2DECHO W DOPPLER(CW/PW/COLOR) (Routine) Indications:Coronary artery disease. Height: 69 inches Weight: 95.25 kg (210 lbs) BSA: 2.11 m^2 BMI: 31.01 kg/m^2 HR: 105 bpm BP: 114/72 mmHg Summary The left ventricle is chamber size (by PSLAX dimension) is normal (male - LVIDd 4.2-5.8cm) . Normal LV wall thickness. Septal motion is abnormal, likely related to prior cardiac surgery . The other segments contract normally. Global LV systolic function normal . Estimated LVEF by qualitative assessment is normal (>60%) . LV endocardium is adequately visualized with IV ultrasound enhancing agent. Grade 1 diastolic dysfunction (impaired relaxation and low-normal LA pressure). Normal (cardiac index 2-3 L/min/m2) cardiac output state at rest is noted. No significant pericardial effusion is visualized. Technically fair exam. Previous Study In comparison with the prior exam on 10-15-18 there are no significant changes. Signature Findings Left Ventricle The left ventricle is chamber size (by PSLAX dimension) is normal (male - LVIDd 4.2-5.8cm) . Normal LV wall thickness. Septal motion is abnormal, likely related to prior cardiac surgery . The other segments contract normally. Global LV systolic function normal . Estimated LVEF by qualitative assessment is normal (>60%) . LV endocardium is adequately visualized with IV ultrasound enhancing agent. Grade 1 diastolic dysfunction (impaired relaxation and low-normal LA pressure). Normal (cardiac index 2-3 L/min/m2) cardiac output state at rest is noted. Left Atrium LA size is normal (16-34 ml/m2) . Right Ventricle RV chamber size is mildly enlarged . Global RV systolic function is normal . Right Atrium RA cavity size is normal . Aortic Valve Normal AoV structure and function. Mitral Valve Mild MV leaflet thickening. Mild mitral annular calcification. Tricuspid Valve Unable to estimate peak systolic PA pressure; inadequate TR velocity signal. No evidence of tricuspid regurgitation. Pulmonic Valve Normal PV structure and function by limited views and Doppler. A trace of pulmonary regurgitation. Aorta Aortic root size (SInus of Valsalva diameter) is borderline dilated . Pericardium No significant pericardial effusion is visualized. IVC/SVC/PA/PV/Pleural The estimated RA pressure by IVC dynamics indeterminate . The inferior vena cava is not visualized. Chambers/Structures Left Atrium LA Volume: 51.63 ml LA Area: 19.95 cm^2 LA Vol. Index: 24 ml/m^2 Left Ventricle LVIDd: 4.48 cm LV Septum Diastolic: 0.96 cm LV PW Diastolic: 0.87 cm LVOT Diameter: 2.17 cm Aorta Ao Root S of Stacey.: 3.55 cm Doppler/Quantitative Measurements Mitral Valve MV Peak E-Wave: 0.56 m/s MV Peak A-Wave: 0.9 m/s E/A Ratio: 0.62 Peak Gradient: 1.25 mmHg Deceleration Time: 262 msec MV Lucas. Peak: Tissue Doppler E' Lateral Velocity: 0.11 m/s E/E': 5.07 LVOT Peak Velocity: 1.01 m/s Peak Gradient: 4.1 mmHg Mean Velocity: 0.69 m/s Mean Gradient: 2.1 mmHg LVOT Diameter: 2.17 cm LVOT VTI: 16.05 cm LVOT Area: 3.7 cm^2 LVOT SV:59.33 ml LVOT CO: 6.23 l/min LVOT CI: 2.95 l/min/m^2 Performing Organization Address City/[facility] Phone Number [facility] Magnesium (10/21/2018 6:36 AM PROGRESS CLERK)Only the most recent of8 resultswithin the time period is included. Magnesium 2.0 1.6 - 2.6 mg/dL [facility] Specimen Blood Performing Organization Address [facility] Phone Number [facility] [address] [place] [address] CENTER ECG 12 lead (10/21/2018 5:50 AM PROGRESS CLERK)Only the most recent of5 resultswithin the time period is included. Specimen Narrative Performed At Ventricular Rate 138 BPM GE MUSE Atrial Rate 144 BPM QRS Duration 80 ms Q-T Interval 294 ms QTC Calculation(Bazett) 445 ms R [place] 60 degrees T [place] 65 degrees Atrial fibrillation with rapid ventricular response with premature ventricular or aberrantly conducted complexes Abnormal ECG Confirmed by MD GABBY, RETA ([id number]) on 10/21/2018 3:45:13 PM Procedure Note Interface, External Ris In - 10/21/2018 3:45 PM PROGRESS CLERK Ventricular Rate 138 BPM Atrial Rate 144 BPM QRS Duration 80 ms Q-T Interval 294 ms QTC Calculation(Bazett) 445 ms R [place] 60 degrees T [place] 65 degrees Atrial fibrillation with rapid ventricular response with premature ventricular or aberrantly conducted complexes Abnormal ECG Confirmed by MD GABBY, RETA ([id number]) on 10/21/2018 3:45:13 PM Performing Organization Address City/State/Zipcode Phone Number [employer] TRANSFUSION SERVICE REPORT - SCAN (10/20/2018 6:00 PM PROGRESS CLERK)Only the most recent of3 resultswithin the time period is included. Narrative Performed At Prepare Leuko-Red RBC (10/19/2018 11:54 PM PROGRESS CLERK) CROSSMATCH COMPATIBLE SAFETRACE TX Unit ABO A Pos SAFETRACE TX UNIT NUMBER [id number] SAFETRACE TX Status TX_TIMEINCHART SAFETRACE TX Blood Bank Product RED BLOOD CELLS SAFETRACE TX PRODUCT CODE [id number] SAFETRACE TX Specimen Other Performing Organization Address [facility] Phone Number SAFETRACE TX CBC (Hemogram only) (10/19/2018 6:21 AM PROGRESS CLERK) WBC 10.5 3.5 - 10.5 K/L [facility] RBC 4.49 (L) 4.63 - 6.08 M/L [facility] Hemoglobin 13.7 13.7 - 17.5 GM/DL [facility] Hematocrit 42.3 40.1 - 51.0 % [facility] MCV 94.2 (H) 79.0 - 92.2 fL [facility] MCH 30.5 25.7 - 32.2 pg [facility] MCHC 32.4 32.3 - 36.5 GM/DL [facility] RDW 13.6 11.6 - 14.4 % [facility] Platelets 186 150 - 450 K/CU MM [facility] MPV 9.6 9.4 - 12.4 fL [facility] nRBC 0 0 - 0 /100 WBC [facility] Specimen Blood Performing Organization Address City/[facility]/Zipcode Phone Number [place] [id number] [place] [address] [phone] CENTER Phosphorus (10/19/2018 6:21 AM PROGRESS CLERK)Only the most recent of3 resultswithin the time period is included. Phosphorus 2.1 (L) 2.3 - 4.7 mg/dL [facility] Specimen Blood Performing Organization Address [facility] Phone Number [address] [address] [place] Insert Arterial Line (10/18/2018 7:05 AM PROGRESS CLERK) Narrative Performed At Ruthann Glover PA-C 10/18/20187:07 AM Insert Arterial Line Date/Time: 10/18/2018 7:05 AM Performed by: Ruthann Glover PA-C Authorized by: Ruthann Glover PA-C Consent: The procedure was performed in an emergent situation. Required items: required blood products, implants, devices, and special equipment available Patient identity confirmed: verbally with patient and arm band Time out: Immediately prior to procedure a "time out" was called to verify the correct patient, procedure, equipment, customer support engineer and site/side marked as required. Preparation: Patient was prepped and draped in the usual sterile fashion. Indications: multiple ABGs and hemodynamic monitoring Location: left radial Seldinger technique: Seldinger technique used Number of attempts: 1 Post-procedure: dressing applied Post-procedure CMS: normal and unchanged Patient tolerance: Patient tolerated the procedure well with no immediate complications Comments: Arterial line not drawing back or transducing appropriately, re-wired successfully, no complications. Glucose-STAT (10/18/2018 5:11 AM PROGRESS CLERK) Glucose 126 (H) 70 - 105 mg/dL [facility] Specimen Blood Performing Organization Address City/[facility] Phone Number [address] [address] [place] Blood gas, arterial (10/18/2018 5:11 AM PROGRESS CLERK)Only the most recent of10 resultswithin the time period is included. pH, Arterial 7.35 7.35 - 7.45 [facility] pCO2, Arterial 44 35 - 45 mmHg [facility] pO2, Arterial 76 (L) 80 - 90 mmHg [facility] O2 Sat, Arterial 94.0 (L) 96.0 - 97.0 % [facility] HCO3, Arterial 24 21 - 29 mmol/L [facility] Base Excess, Arterial -2.0 -2.0 - 3.0 mmol/L [facility] Patient Temperature 37.7 C [facility] FIO2 40.0 % [facility] Specimen Blood, Arterial Performing Organization Address City/State/Zipcode Phone Number [facility] [address] [place] [address] CENTER Comprehensive metabolic panel (10/18/2018 5:11 AM PROGRESS CLERK) Protein, Total 5.5 (L)Comment: Specimen 6.0 - 8.3 gm/dL [facility] slightly hemolyzed [facility] Albumin 3.5Comment: Specimen 3.5 - 5.0 g/dL [facility] slightly hemolyzed [facility] Alkaline Phosphatase 29 (L) 40 - 150 U/L [facility] Total Bilirubin 1.5 (H)Comment: Specimen 0.2 - 1.2 mg/dL [facility] slightly hemolyzed [facility] Sodium 140 136 - 145 meq/L [facility] Potassium 4.3Comment: Specimen 3.5 - 5.1 meq/L [facility] slightly hemolyzed [facility] Chloride 110 (H) 98 - 107 meq/L [facility] CO2 23 22 - 29 meq/L [facility] BUN 8 7 - 21 mg/dL [facility] Creatinine 0.74Comment: Specimen 0.57 - 1.25 mg/dL [facility] slightly hemolyzed [facility] Glucose 126 (H) 70 - 105 mg/dL [facility] Calcium 8.5 8.4 - 10.2 mg/dL [facility] AST 35 (H)Comment: Specimen 5 - 34 U/L [facility] slightly hemolyzed [facility] ALT 32Comment: Specimen 6 - 55 U/L [facility] slightly hemolyzed [facility] EGFR Comment: INSUFFICIENT mL/min/1.73 sq m [facility] CLINICAL DATA TO [facility] CALCULATE ESTIMATED GFR. Specimen Blood Performing Organization Address City/[facility] Phone Number [address] [address] [phone] [place] Transfuse Leuko-Red RBC (10/18/2018 4:32 AM PROGRESS CLERK)Only the most recent of2 resultswithin the time period is included.Hemoglobin and hematocrit (10/17/2018 10:27 PM PROGRESS CLERK)Only the most recent of2 resultswithin the time period is included. Hemoglobin 7.8 (L) 13.7 - 17.5 GM/DL [facility] Hematocrit 24.2 (L) 40.1 - 51.0 % [facility] Specimen Blood Performing Organization Address [facility] Phone Number [address] [address] [phone] CENTER Calcium, Ionized (10/17/2018 7:34 PM PROGRESS CLERK)Only the most recent of3 resultswithin the time period is included. Calcium, Ion 1.06 (L) 1.12 - 1.27 mmol/L [facility] pH, Blood 7.42 [facility] Specimen Blood Performing Organization Address City/[facility] Phone Number [address] [address] CENTER Potassium-Stat Lab (10/17/2018 7:33 PM PROGRESS CLERK)Only the most recent of5 resultswithin the time period is included. Potassium 3.9 3.6 - 5.5 meq/L [facility] Specimen Blood, Arterial Performing Organization Address City/[facility] Phone Number [address] [address] [phone] CENTER Sodium Na-Stat Lab (10/17/2018 7:33 PM PROGRESS CLERK)Only the most recent of5 resultswithin the time period is included. Sodium 136 135 - 148 meq/L [facility] Specimen Blood, Arterial Performing Organization Address [facility] Phone Number [address] [address] CENTER Glucose-Stat Lab (10/17/2018 7:33 PM PROGRESS CLERK)Only the most recent of5 resultswithin the time period is included. Glucose 149 (H) 70 - 110 mg/dL [facility] Specimen Blood, Arterial Performing Organization Address [facility] Phone Number [address] [address] CENTER HGB/HCT (H&H)-Stat Lab (10/17/2018 7:33 PM PROGRESS CLERK)Only the most recent of5 resultswithin the time period is included. Hemoglobin 12.9 (L) 13.0 - 16.8 g/dL [facility] Hematocrit 38.0 (L) 40.0 - 50.0 % [facility] Specimen Blood, Arterial Performing Organization Address City/[facility] Phone Number [address] [address] [place] Oxygen saturation, measured (10/17/2018 2:44 PM PROGRESS CLERK) O2 Saturation (Measured) 54.3 % [facility] Specimen Blood Performing Organization Address City/[facility] Phone Number [address] [address] [place] Lactic acid, arterial, whole blood (10/17/2018 2:44 PM PROGRESS CLERK) Lactate, Art 0.8Comment: Specimen 0.5 - 2.2 mmol/L [facility] slightly hemolyzed [facility] Specimen Blood, Arterial Performing Organization Address [facility] Phone Number [address] [address] [place] POC ACTIVATED CLOTTING TIME (10/17/2018 1:25 PM PROGRESS CLERK)Only the most recent of4 resultswithin the time period is included. Activated Clotting Time 92Comment: TESTED AT sec [place] [id number] Specimen Blood Performing Organization Address [facility] Phone Number [address] [address] [place] aPTT (10/17/2018 4:18 AM PROGRESS CLERK)Only the most recent of7 resultswithin the time period is included. PTT 35.7 22.5 - 36.0 seconds [facility] Specimen Blood Performing Organization Address [facility] Phone Number [address] [address] [place] Platelet count (10/17/2018 4:02 AM PROGRESS CLERK)Only the most recent of2 resultswithin the time period is included. Platelets 235 150 - 450 K/CU MM [facility] Specimen Blood Performing Organization Address [facility] Phone Number [address] [address] [place] Prothrombin time/INR (10/16/2018 6:38 PM PROGRESS CLERK) Protime 13.2 11.7 - 14.7 seconds [facility] INR 1.0 <=5.9 [facility] Specimen Blood Narrative Performed At RECOMMENDED COUMADIN/WARFARIN INR THERAPY [facility] RANGES STANDARD DOSE: 2.0 - 3.0 Includes: PROPHYLAXIS for venous thrombosis, systemic embolization; TREATMENT for venous thrombosis and/or pulmonary embolus. HIGH RISK: Target INR is 2.5-3.5 for patients with mechanical heart valves. Performing Organization Address [facility] Phone Number [facility] [address] [place] [address] [place] Urinalysis w/ Microscopic (10/16/2018 5:29 PM PROGRESS CLERK) Color, UA Light Yellow [facility] Clarity, UA Clear [facility] Specific [place], UA 1.008 1.001 - 1.035 [facility] pH, UA 7.0 5.0 - 8.0 [facility] Protein, UA Negative Negative [facility] Glucose, UA 100 mg/dL (A) Negative [facility] Ketones, UA Negative Negative [facility] Bilirubin, UA Negative Negative [facility] Blood, UA Negative Negative [facility] Nitrite, UA Negative Negative [facility] Leukocytes, UA Negative Negative [facility] Urobilinogen, UA 0.2 0.2 - 1.0 mg/dL [facility] RBC, UA 0 /HPF [facility] WBC, UA 0 /HPF [facility] Specimen Source Urine, Voided [facility] Specimen Urine Performing Organization Address City/[facility]/Zipcode Phone Number [facility] [address] [place] [phone] CENTER Carotid doppler bilateral (10/16/2018 3:13 PM PROGRESS CLERK) Ejection Fraction [facility]ACS Specimen Impressions Performed At Right Impression [facility] 1. There is <50% diameter reduction (approximately 22% by 2-D measurement) in the internal carotid artery with a peak velocity of 99/40 cm/sec and heterogeneous plaque. 2. The external carotid artery is within normal limits. 3. The common carotid artery is within normal limits. 4. The vertebral artery flow is antegrade and normal. 5. The subclavian artery is within normal limits where visualized. Left Impression 1. The internal carotid artery is within normal limits. 2. There is non-occluding plaque in the external carotid artery. 3. The common carotid artery is within normal limits. 4. The vertebral artery flow is antegrade and normal. 5. The subclavian artery is within normal limits where visualized. Conclusions Summary Carotid duplex scanning and color flow imaging were performed bilaterally. The arteries were adequately visualized. The right internal carotid artery had <50% hemodynamically insignificant stenosis (approximately 22% by 2-D measurement) with heterogeneous plaque. The left internal carotid artery was normal with no plaque visualized. The vertebral artery flow was antegrade and normal bilaterally. The subclavian arteries were patent with normal flow bilaterally where visualized. Signature Velocities are measured in cm/s ; Diameters are measured in cm Carotid Right Measurements + +----+----+-----+ +---- + + !Location !PSV !EDV !Angle!%Stenosis 2D!%Stenosis Doppler!Tortuosity ! + +----+----+-----+ +---- + + !Prox CCA !173 !29.5!60 !! ! ! + +----+----+-----+ +---- + + !Dist CCA !85!19.3!60 !! ! ! + +----+----+-----+ +---- + + !Prox ICA !51.5!20!60 !22% !<50% ! ! + +----+----+-----+ +---- + + !Dist ICA !99.8!40.9!60 !! ! ! + +----+----+-----+ +---- + + !Prox ECA !70.9!11.1!60 !! ! ! + +----+----+-----+ +---- + + !Vertebral!50.9!22.9!60 !! ! ! + +----+----+-----+ +---- + + !Prox Subclavian!139 !21.6!60 !! ! ! + +----+----+-----+ +---- + + - There is antegrade vertebral flow noted on the right side. - Additional Measurements:ICAPSV/CCAPSV 1.17.ICAEDV/CCAEDV 1.39. Carotid Left Measurements + +----+----+-----+ +---- + + !Location !PSV !EDV !Angle!%Stenosis 2D!%Stenosis Doppler!Tortuosity ! + +----+----+-----+ +---- + + !Prox CCA !93.5!27.5!60 !! ! ! + +----+----+-----+ +---- + + !Dist CCA !91.9!29.9!60 !! ! ! + +----+----+-----+ +---- + + !Prox ICA !75.8!33.8!60 !!Normal ! ! + +----+----+-----+ +---- + + !Dist ICA !86!33.8!60 !! ! ! + +----+----+-----+ +---- + + !Prox ECA !72.7!16.4!60 !! ! ! + +----+----+-----+ +---- + + !Vertebral!30.3!8.05!60 !! ! ! + +----+----+-----+ +---- + + !Prox Subclavian!108 !13.4!60 !! ! ! + +----+----+-----+ +---- + + - There is antegrade vertebral flow noted on the left side. - Additional Measurements:ICAPSV/CCAPSV 0.94.ICAEDV/CCAEDV 1.23. Narrative Performed At [facility] - Carotid Duplex Study [facility] Demographics Patient Name Magali SIMPSON of Study10/16/2018 [id number] Age7 2 Visit Number [id number] Male Accession Number [id number] of Birth1955 [facility] Room NumberSCPR Physician SonographerDana SmithInterpreting Mary Lou Navarro RVT PhysicianMD Procedure Type of Study: Cerebral: Carotid, CAROTID DOPPLER, BILATERAL. Indications for Study:Pre-op. Patient Status:Routine. Study Location:Vascular Lab. Technical Quality:Adequate visualization. Risk Factors History of Disease + +----+ + !Diagnosis!Date!Co mments ! + +----+ + !History/Risk Factors:!!NSTEMI, DM, HLD, Former Smoker ! + +----+ + Procedure Note Interface, External Ris In - 10/17/2018 9:33 AM PROGRESS CLERK [facility] - Carotid Duplex Study Demographics Patient Name DAVIN SIMPSON Date of Study 10/16/2018 Age 63 Visit Number [id number] Gender Male Accession Number [id number] Date of 1955 Referring Maria T Browning Room Number SCPR Physician Clinical Marketing Manager Dana Smith Interpreting Mary Lou Navarro T Physician Procedure Type of Study: Cerebral: Carotid, CAROTID DOPPLER, BILATERAL. Indications for Study:Pre-op. Patient Status:Routine. Study Location:Vascular Lab. Technical Quality:Adequate visualization. Risk Factors History of Disease + +----+ + !Diagnosis !Date!Comments ! + +----+ + !History/Risk Factors: ! !NSTEMI, DM, HLD, Former Smoker ! + +----+ + Impressions Right Impression 1. There is <50% diameter reduction (approximately 22% by 2-D measurement) in the internal carotid artery with a peak velocity of 99/40 cm/sec and heterogeneous plaque. 2. The external carotid artery is within normal limits. 3. The common carotid artery is within normal limits. 4. The vertebral artery flow is antegrade and normal. 5. The subclavian artery is within normal limits where visualized. Left Impression 1. The internal carotid artery is within normal limits. 2. There is non-occluding plaque in the external carotid artery. 3. The common carotid artery is within normal limits. 4. The vertebral artery flow is antegrade and normal. 5. The subclavian artery is within normal limits where visualized. Conclusions Summary Carotid duplex scanning and color flow imaging were performed bilaterally. The arteries were adequately visualized. The right internal carotid artery had <50% hemodynamically insignificant stenosis (approximately 22% by 2-D measurement) with heterogeneous plaque. The left internal carotid artery was normal with no plaque visualized. The vertebral artery flow was antegrade and normal bilaterally. The subclavian arteries were patent with normal flow bilaterally where visualized. Signature Velocities are measured in cm/s ; Diameters are measured in cm Carotid Right Measurements + +----+----+-----+ + + + !Location !PSV !EDV !Angle!%Stenosis 2D!%Stenosis Doppler!Tortuosity ! + +----+----+-----+ + + + !Prox CCA !173 !29.5!60 ! ! ! ! + +----+----+-----+ + + + !Dist CCA !85 !19.3!60 ! ! ! ! + +----+----+-----+ + + + !Prox ICA !51.5!20 !60 !22% !<50% ! ! + +----+----+-----+ + + + !Dist ICA !99.8!40.9!60 ! ! ! ! + +----+----+-----+ + + + !Prox ECA !70.9!11.1!60 ! ! ! ! + +----+----+-----+ + + + !Vertebral !50.9!22.9!60 ! ! ! ! + +----+----+-----+ + + + !Prox Subclavian!139 !21.6!60 ! ! ! ! + +----+----+-----+ + + + - There is antegrade vertebral flow noted on the right side. - Additional Measurements:ICAPSV/CCAPSV 1.17.ICAEDV/CCAEDV 1.39. Carotid Left Measurements + +----+----+-----+ + + + !Location !PSV !EDV !Angle!%Stenosis 2D!%Stenosis Doppler!Tortuosity ! + +----+----+-----+ + + + !Prox CCA !93.5!27.5!60 ! ! ! ! + +----+----+-----+ + + + !Dist CCA !91.9!29.9!60 ! ! ! ! + +----+----+-----+ + + + !Prox ICA !75.8!33.8!60 ! !Normal ! ! + +----+----+-----+ + + + !Dist ICA !86 !33.8!60 ! ! ! ! + +----+----+-----+ + + + !Prox ECA !72.7!16.4!60 ! ! ! ! + +----+----+-----+ + + + !Vertebral !30.3!8.05!60 ! ! ! ! + +----+----+-----+ + + + !Prox Subclavian!108 !13.4!60 ! ! ! ! + +----+----+-----+ + + + - There is antegrade vertebral flow noted on the left side. - Additional Measurements:ICAPSV/CCAPSV 0.94.ICAEDV/CCAEDV 1.23. Performing Organization Address City/[facility] Phone Number [facility] Troponin I (10/15/2018 6:45 PM PROGRESS CLERK)Only the most recent of4 resultswithin the time period is included. Troponin I 1.85 (HH) 0.00 - 0.03 ng/mL [facility] Specimen Blood Narrative Performed At Troponin I (TnI) levels must be interpreted [facility] in the context of the presenting symptoms and the clinical findings. Elevated TnI levels indicate myocardial damage, but are not specific for ischemic heart disease. Elevated TnI levels are seen in patients with other cardiac conditions (including myocarditis and congestive heart failure), and slight TnI elevations occur in patients with other conditions, including sepsis, renal failure, acidosis, acute neurological disease, and persistent tachyarrhythmia. Performing Organization Address City/[facility] [place] [address] [phone] CENTER ECHOCARDIOGRAM REPORT - SCAN (10/15/2018 6:20 PM PROGRESS CLERK) Narrative Performed At 2D Echo W/Doppler(CW/PW/Color) (10/15/2018 3:20 PM PROGRESS CLERK) Ejection Fraction [facility] Specimen Narrative Performed At Transthoracic Echocardiography Report (TTE) [facility] Demographics Patient Name DAVIN SIMPSON Date of Study10/15/2018 [id number] Gender Male Visit Number [id number] Race Unknown [id number] Number Date of Birth1955 Referring PhysicianSwicho Browning Age63 year(s) SonographerPelon Felton RDCS Interpreting Physician ReaMD Fellow DAMIEN Lara Procedure Type of Study TTE procedure:2DECHO W DOPPLER(CW/PW/COLOR) (Pending Discharge) Indications:Acute Chest Pain/ Suspected CAD. Clinical History Diabetes Hyperlipidemia HGB 15.8 HCT 45.5 % Contrast Medium: Definity. Amount - 3 ml Height: 69 inches Weight: 95.25 kg (210 lbs) BSA: 2.11 m^2 BMI: 31.01 kg/m^2 HR: 75 bpm BP: 119/75 mmHg Summary The left ventricle is chamber size (by vol index) is normal. LV septal thickness is mildly increased (1.2-1.4cm). LV posterior wall thickness is normal (0.6-1.1cm) . All of the LV segments contract normally . LVEF by Tee's method of disk assessment is normal (55-60%) . Grade 1 diastolic dysfunction (impaired relaxation and low-normal LA pressure). Unable to estimate peak systolic PA pressure; inadequate TR velocity signal. No significant pericardial effusion is visualized. Previous Study No prior exam available for comparison. Signature Findings Rhythm/BPRegular sinus rhythm during the exam. Left Ventricle LV endocardium is incompletely visualized despite IV ultrasound enhancing agent due to fo reshortening. Th e left ventricle is chamber size (by vol index) is normal. LV septal thickness is mildly increased (1 .2-1.4cm). LV posterior wall thickness is normal (0 .6-1.1cm) . Al l of the LV segments contract normally . LV EF by Tee's method of disk assessment is no rmal (55-60%) . Gr oksana 1 diastolic dysfunction (impaired relaxation an d low-normal LA pressure). Left AtriumThe left atrium is not well seen in the apical vi ews, but appears normal in size in the pa rasternal diameter. Right VentricleRV chamber size is mildly enlarged . Gl obal RV systolic function is normal . Right Atrium RA size is normal. Atrial SeptumNormal interatrial septum by available views. Aortic Valve Mild AoV cusp thickening. No evidence of aortic st enosis. No evidence of aortic regurgitation. Mitral Valve Mild MV leaflet thickening. Mi ld mitral annular calcification (posterior > an terior). Tricuspid ValveTV structure is normal. No evidence of tricuspid regurgitation. Un able to estimate peak systolic PA pressure; in adequate TR velocity signal. Pulmonic Valve Normal PV structure. A trace of pulmonary regurgitation. No evidence of PV stenosis. AortaAortic root size (SInus of Valsalva diameter) is no rmal . PericardiumNo significant pericardial effusion is visualized. IVC/SVC/PA/PV/PleuralThe inferior vena cava is not visualized. Chambers/Structures Left Atrium LA Dimension: 3.41 cm LA Volume: 41.03 ml LA Vol. Index: 19 ml/m^2 Left Ventricle LVIDd: 4.45 cm LVIDs: 3.09 cm LV Septum Diastolic: 1.22 cm LV Septum Systolic: 1.3 cmLV FS: 30.6 % LV PW Diastolic: 0.9 cm LV PW Systolic: 1.23 cm LVEDVI: 51 ml/m^2 LVEDV Tee's:108.35 ml LVESVI: 24 ml/m^2 LVESV Tee's:50.18 ml LVEF Tee's: 53.7 % LVOT Diameter: 2.52 cm Aorta Ascending Aorta: 3.07 cm Doppler/Quantitative Measurements Mitral Valve MV Peak E-Wave: 0.57 m/sMV Peak A-Wave: 1.06 m/s E/A Ratio: 0.53 Peak Gradient: 1.28 mmHg MV Lucas. Peak: Tissue Doppler E' Septal Velocity: 0.08 m/sE/E': 7.14 E' Lateral Velocity: 0.1 m/s Aortic Valve Peak Velocity: 1.07 m/s Mean Velocity: 0.77 m/s Peak Gradient: 4.57 mmHgMean Gradient: 2.6 mmHg AV Area (continuity): 3.19 cm^2 AV VTI: 22.16 cm AV DVI: 0.64 LVOT Peak Velocity: 0.73 m/s Peak Gradient: 2.14 mmHg Mean Velocity: 0.49 m/s Mean Gradient: 1.12 mmHg LVOT Diameter: 2.52 cmLVOT VTI: 14.19 cm LVOT Area: 4.99 cm^2LVOT SV:70.74 ml LVOT CO: 5.31 l/min LVOT CI: 2.52 l/min/m^2 Procedure Note Interface, External Ris In - 10/15/2018 5:49 PM PROGRESS CLERK Transthoracic Echocardiography Report (TTE) Demographics Patient Name DAVIN SIMPSON Date of Study 10/15/2018 Gender Male Visit Number [id number] Race Unknown Room Number 1043 Number Date of 1955 Referring Physician Maria T Browning Age 63 year(s) Clinical Marketing Manager Pelon Felton RDCS Interpreting Dylon Borges, Physician Fellow DAMIEN Lara Procedure Type of Study TTE procedure:2DECHO W DOPPLER(CW/PW/COLOR) (Pending Discharge) Indications:Acute Chest Pain/ Suspected CAD. Clinical History Diabetes Hyperlipidemia HGB 15.8 HCT 45.5 % Contrast Medium: Definity. Amount - 3 ml Height: 69 inches Weight: 95.25 kg (210 lbs) BSA: 2.11 m^2 BMI: 31.01 kg/m^2 HR: 75 bpm BP: 119/75 mmHg Summary The left ventricle is chamber size (by vol index) is normal. LV septal thickness is mildly increased (1.2-1.4cm). LV posterior wall thickness is normal (0.6-1.1cm) . All of the LV segments contract normally . LVEF by Tee's method of disk assessment is normal (55-60%) . Grade 1 diastolic dysfunction (impaired relaxation and low-normal LA pressure). Unable to estimate peak systolic PA pressure; inadequate TR velocity signal. No significant pericardial effusion is visualized. Previous Study No prior exam available for comparison. Signature Findings Rhythm/BP Regular sinus rhythm during the exam. Left Ventricle LV endocardium is incompletely visualized despite IV ultrasound enhancing agent due to foreshortening. The left ventricle is chamber size (by vol index) is normal. LV septal thickness is mildly increased (1.2-1.4cm). LV posterior wall thickness is normal (0.6-1.1cm) . All of the LV segments contract normally . LVEF by Tee's method of disk assessment is normal (55-60%) . Grade 1 diastolic dysfunction (impaired relaxation and low-normal LA pressure). Left Atrium The left atrium is not well seen in the apical views, but appears normal in size in the parasternal diameter. Right Ventricle RV chamber size is mildly enlarged . Global RV systolic function is normal . Right Atrium RA size is normal. Atrial Septum Normal interatrial septum by available views. Aortic Valve Mild AoV cusp thickening. No evidence of aortic stenosis. No evidence of aortic regurgitation. Mitral Valve Mild MV leaflet thickening. Mild mitral annular calcification (posterior > anterior). Tricuspid Valve TV structure is normal. No evidence of tricuspid regurgitation. Unable to estimate peak systolic PA pressure; inadequate TR velocity signal. Pulmonic Valve Normal PV structure. A trace of pulmonary regurgitation. No evidence of PV stenosis. Aorta Aortic root size (SInus of Valsalva diameter) is normal . Pericardium No significant pericardial effusion is visualized. IVC/SVC/PA/PV/Pleural The inferior vena cava is not visualized. Chambers/Structures Left Atrium LA Dimension: 3.41 cm LA Volume: 41.03 ml LA Vol. Index: 19 ml/m^2 Left Ventricle LVIDd: 4.45 cm LVIDs: 3.09 cm LV Septum Diastolic: 1.22 cm LV Septum Systolic: 1.3 cm LV FS: 30.6 % LV PW Diastolic: 0.9 cm LV PW Systolic: 1.23 cm LVEDVI: 51 ml/m^2 LVEDV Tee's:108.35 ml LVESVI: 24 ml/m^2 LVESV Tee's:50.18 ml LVEF Tee's: 53.7 % LVOT Diameter: 2.52 cm Aorta Ascending Aorta: 3.07 cm Doppler/Quantitative Measurements Mitral Valve MV Peak E-Wave: 0.57 m/s MV Peak A-Wave: 1.06 m/s E/A Ratio: 0.53 Peak Gradient: 1.28 mmHg MV Lucas. Peak: Tissue Doppler E' Septal Velocity: 0.08 m/s E/E': 7.14 E' Lateral Velocity: 0.1 m/s Aortic Valve Peak Velocity: 1.07 m/s Mean Velocity: 0.77 m/s Peak Gradient: 4.57 mmHg Mean Gradient: 2.6 mmHg AV Area (continuity): 3.19 cm^2 AV VTI: 22.16 cm AV DVI: 0.64 LVOT Peak Velocity: 0.73 m/s Peak Gradient: 2.14 mmHg Mean Velocity: 0.49 m/s Mean Gradient: 1.12 mmHg LVOT Diameter: 2.52 cm LVOT VTI: 14.19 cm LVOT Area: 4.99 cm^2 LVOT SV:70.74 ml LVOT CO: 5.31 l/min LVOT CI: 2.52 l/min/m^2 Performing Organization Address [facility] Phone Number [facility] [place]H, manual (10/15/2018 6:08 AM PROGRESS CLERK) ABO Grouping AB [facility] Rh Factor POS [facility] Specimen Blood Performing Organization Address [facility] Phone Number [facility] [address] [place] [address] Type and screen, automated ([facility] Lab) (10/15/2018 2:19 AM PROGRESS CLERK) ABO/RH AUTOMATED (BEAKER) AB POSITIVE [facility] Ab Scrn NEGATIVE [facility] Specimen Blood Performing Organization Address [facility] Phone Number [facility] [address] Lipid panel (10/15/2018 2:19 AM PROGRESS CLERK) Triglycerides 110Comment: Specimen slightly mg/dL [facility] Cholesterol 139Comment: Specimen slightly mg/dL [facility] HDL 41 mg/dL [facility] LDL Calculated 76 mg/dL [facility] Specimen Blood Narrative Performed At Triglyceride Reference Range: [facility] Low Risk <150 [id number] High Risk 200-499 Very High Risk>=500 Cholesterol Reference Range: Low Risk <200 [id number] High Risk>240 HDL Cholesterol Reference Range: Low Risk >=60 High Risk <40 LDL Cholesterol Reference Range: Optimal<100 Near [id number] Very High >=190 Performing Organization Address City/[facility] Phone Number [address] [address] CENTER TSH/Free T4 If Indicated (10/15/2018 12:07 AM PROGRESS CLERK) TSH 0.93 0.35 - 4.94 uIU/mL [facility] Specimen Blood Performing Organization Address [facility] Phone Number [address] [address] CENTER B-type Natriuretic Factor (BNP) (10/15/2018 12:07 AM PROGRESS CLERK) BNP 30 0 - 100 pg/mL [facility] Specimen Blood Performing Organization Address City/[facility]/Zipcode Phone Number [address] [address] [phone] CENTER Hemoglobin A1c (10/15/2018 12:07 AM PROGRESS CLERK) Hemoglobin A1C 7.6 (H)Comment: POSSIBLE 4.3 - 6.1 % [facility] HEMOGLOBIN S VARIANT NOTED IN MEDICAL CENTER HEMOGLOBIN A1C CHROMATOGRAPH. SUGGEST HEMOGLOBIN ELECTROPHORESIS IF CLINICALLY INDICATED. Specimen Blood Performing Organization Address City/[facility]/Zipcode Phone Number [facility] [address] [place] [address] [phone] CENTER XR chest 2 views (10/14/2018 6:46 PM PROGRESS CLERK) Specimen Narrative Performed At FINAL REPORT [facility] Examination: Two view Chest X-ray. CLINICAL HISTORY: Back pain COMPARISON:None. The cardiac silhouette is within normal limits for size. There is atherosclerotic calcification of the aorta. There is no focal consolidation, pleural effusion, pneumothorax or evidence of overt pulmonary edema. There is no acute bony abnormality. IMPRESSION: No acute abnormality. Signed: Shabbir Lora MD Report Verified Date/Time:10/14/2018 19:00:02 Reading Location: [address] Reading Room Procedure Note Interface, External Ris In - 10/14/2018 7:02 PM PROGRESS CLERK FINAL REPORT Examination: Two view Chest X-ray. CLINICAL HISTORY: Back pain COMPARISON:None. The cardiac silhouette is within normal limits for size. There is atherosclerotic calcification of the aorta. There is no focal consolidation, pleural effusion, pneumothorax or evidence of overt pulmonary edema. There is no acute bony abnormality. IMPRESSION: No acute abnormality. Signed: Shabbir Lora MD Report Verified Date/Time: 10/14/2018 19:00:02 Reading Location: [address] Reading Room Performing Organization Address [facility]/Zipcode Phone Number [facility] POCT CBC (Hemogram) (10/14/2018 6:30 PM PROGRESS CLERK) WBC, POC 9.0 4.2 - 9.1 K/L RBC, POC 5.23 4.63 - 6.08 M/L Hemoglobin, POC 16.8 13.7 - 17.5 GM/DL Hematocrit, POC 47.1 40.1 - 51.0 % MCV, POC 90.1 79.0 - 92.2 fL MCH, POC 32.1 25.7 - 32.2 pg MCHC, POC 35.7 32.3 - 36.5 gm/dL Platelet Count, POCT 278 150 - 450 K/CU MM Specimen POCT Rapid Troponin I (10/14/2018 6:30 PM PROGRESS CLERK) Rapid Troponin I, POC 0.37 (A) 0.00 - 0.05 ng/mL Specimen POCT Basic Metabolic Panel (10/14/2018 6:30 PM PROGRESS CLERK) Glucose, POC 168 (A) 70 - 110 mg/dL BUN, POC 7 7 - 26 mg/dL Calcium, POC 9.6 8.4 - 10.2 mg/dL Creatinine, POC 1.4 (A) 0.5 - 1.2 mg/dL EGFR, POC 50 (A) 60 - 200 mL/min/1.73 sq m Sodium, POC 135 (A) 136 - 145 mEq/L Potassium, POC 4.2 3.5 - 5.1 mEq/L Chloride, POC 103 98 - 106 mEq/L CO2 Total, POC 23 22 - 29 mEq/L Specimen Narrative Performed At Reported at 2+ Hemolysis after 04/05/2018 Insurance Payer Benefit Plan / Group Subscriber ID Type Phone Address [facility] HMO POS SELECT xxxxxxxxx HMO/POS CARE CHOICE [facility] KADE chao (Home) [phone] [place], [place] (Work) [id number] Advance Directives For more information, please contact:[address] [phone] Code Status Date Activated Date Inactivated Comments Full Code 10/17/2018 2:28 PM 10/22/2018 4:45 PM This code status was determined by: Other (please list) prior Full Code 10/16/2018 1:20 PM 10/17/2018 2:28 PM This code status was determined by: Patient Full Code 10/14/2018 10:27 PM 10/16/2018 1:20 PM This code status was determined by: Patient
--- OUTSIDE RECORDS SUMMARY | 2019-04-06 15:40 | XMS REPORT ---
:1955 [facility] Address [address] [place] [address] Care Team Providers Name Role Phone DALE GOMEZ Alexis Unavailable Unavailable Problems This patient has no known problems. Allergies, Adverse Reactions, Alerts This patient has no known allergies or adverse reactions. Medications This patient has no known medications. Results Test Description Test Time Test Comments Text Results Atomic Results Result Comments POCT-GLUCOSE METER 2018-10-22 12:40:00 Test Item Value Reference Range Comments POC-GLUCOSE METER (BEAKER) (test 165 mg/dL 70-110 TESTED AT [facility] [address] [facility] wswe[facility] [address] POCT-GLUCOSE [id number] 08:17:00 Test Item Value Reference Range Comments POC-GLUCOSE METER (BEAKER) 169 mg/dL 70-110 TESTED AT [facility] [address] [facility] (test fppt=8156) [facility] [address] BASIC METABOLIC [id number] 05:59:00 Test Item Value Reference Range Comments SODIUM (BEAKER) (test 138 meq/L 136-145 vdzn=886) POTASSIUM (BEAKER) (test 3.6 meq/L 3.5-5.1 punx=022) CHLORIDE (BEAKER) (test 105 meq/L 98-107 yvev=837) CO2 (BEAKER) (test 23 meq/L 22-29 vyjv=807) BLOOD UREA NITROGEN 9 mg/dL 7-21 (BEAKER) (test hwug=314) CREATININE (BEAKER) (test 0.76 mg/dL 0.57-1.25 sumu=483) GLUCOSE RANDOM (BEAKER) 139 mg/dL 70-105 (test anoa=252) CALCIUM (BEAKER) (test 8.7 mg/dL 8.4-10.2 eozh=150) EGFR (BEAKER) (test mL/min/1.73 sq m INSUFFICIENT CLINICAL DATA znmo=0198) TO CALCULATE ESTIMATED GFR. CBC W/PLT COUNT & AUTO [id number] 05:35:00 Test Item Value Reference Range Comments WHITE BLOOD CELL COUNT (BEAKER) (test drui=677) 5.1 K/ L 3.5-10.5 RED BLOOD CELL COUNT (BEAKER) (test aerc=442) 4.22 M/ L 4.63-6.08 HEMOGLOBIN (BEAKER) (test evdq=355) 12.9 GM/DL 13.7-17.5 HEMATOCRIT (BEAKER) (test zbqk=118) 39.4 % 40.1-51.0 MEAN CORPUSCULAR VOLUME (BEAKER) (test eklg=365) 93.4 fL 79.0-92.2 MEAN CORPUSCULAR HEMOGLOBIN (BEAKER) (test 30.6 pg 25.7-32.2 ueca=897) MEAN CORPUSCULAR HEMOGLOBIN CONC (BEAKER) (test 32.7 GM/DL 32.3-36.5 wjid=394) RED CELL DISTRIBUTION WIDTH (BEAKER) (test 13.3 % 11.6-14.4 lpan=123) PLATELET COUNT (BEAKER) (test ntvn=885) 294 K/CU MM 150-450 MEAN PLATELET VOLUME (BEAKER) (test ljbu=346) 9.0 fL 9.4-12.4 NUCLEATED RED BLOOD CELLS (BEAKER) (test 0 /100 WBC 0-0 fkmb=780) NEUTROPHILS RELATIVE PERCENT (BEAKER) (test 52 % avkw=060) LYMPHOCYTES RELATIVE PERCENT (BEAKER) (test 28 % stac=713) MONOCYTES RELATIVE PERCENT (BEAKER) (test 12 % rulh=336) EOSINOPHILS RELATIVE PERCENT (BEAKER) (test 6 % nuae=961) BASOPHILS RELATIVE PERCENT (BEAKER) (test 1 % ibce=009) NEUTROPHILS ABSOLUTE COUNT (BEAKER) (test 2.69 K/ L 1.78-5.38 dcxd=972) LYMPHOCYTES ABSOLUTE COUNT (BEAKER) (test 1.43 K/ L 1.32-3.57 blzh=115) MONOCYTES ABSOLUTE COUNT (BEAKER) (test 0.63 K/ L 0.30-0.82 myaf=103) EOSINOPHILS ABSOLUTE COUNT (BEAKER) (test 0.33 K/ L 0.04-0.54 kfae=195) BASOPHILS ABSOLUTE COUNT (BEAKER) (test 0.04 K/ L 0.01-0.08 nqnr=249) IMMATURE GRANULOCYTES-RELATIVE PERCENT (BEAKER) 0 % 0-1 (test jpbl=2578) POCT-GLUCOSE [id number] 21:52:00 Test Item Value Reference Range Comments POC-GLUCOSE METER (BEAKER) 209 mg/dL 70-110 TESTED AT [address] (test qlod=4829) [place] [id number] POCT-GLUCOSE [id number] 18:37:00 Test Item Value Reference Range Comments POC-GLUCOSE METER (BEAKER) 166 mg/dL 70-110 TESTED AT [address] (test kzfb=2944) [place] [id number] RAD, CHEST, 1 VIEW, NON [id number] 13:58:00Reason for exam:-> wheezingShould this be performed at the bedside?->YesFINAL REPORT TECHNIQUE: Frontal view of the chest. INDICATION: 63-year-old man with wheezing. COMPARISON: Chest radiograph 10/19/2018. FINDINGS: LINES/TUBES: None. LUNGS: Persistent low lung volumes with streaky bibasilar atelectasis. No new consolidation or pulmonary edema. PLEURA: No pneumothorax or significant pleural effusion. HEART AND MEDIASTINUM: The cardiomediastinal silhouette is unchanged. Atherosclerotic calcifications in the thoracic aorta. SOFT TISSUES AND BONES: Unremarkable. IMPRESSION:No significant change since 10/19/2018. Signed: [place] MDReport Verified Date/Time: 10/21/2018 13:58:52 Reading Location: [address] Consult Reading Room POCT-GLUCOSE [id number] 12:21:00 Test Item Value Reference Range Comments POC-GLUCOSE METER (BEAKER) 197 mg/dL 70-110 TESTED AT [address] (test fsyi=3469) [facility] [address] POCT-GLUCOSE [id number] 08:51:00 Test Item Value Reference Range Comments POC-GLUCOSE METER (BEAKER) 179 mg/dL 70-110 TESTED AT [address] (test piog=0457) [facility] [address] BASIC METABOLIC [id number] 07:24:00 Test Item Value Reference Range Comments SODIUM (BEAKER) (test 141 meq/L 136-145 ysym=895) POTASSIUM (BEAKER) (test 4.0 meq/L 3.5-5.1 ceft=699) CHLORIDE (BEAKER) (test 104 meq/L 98-107 sbfj=681) CO2 (BEAKER) (test 26 meq/L 22-29 bzbo=931) BLOOD UREA NITROGEN 8 mg/dL 7-21 (BEAKER) (test yjxy=395) CREATININE (BEAKER) (test 0.80 mg/dL 0.57-1.25 fwnh=684) GLUCOSE RANDOM (BEAKER) 170 mg/dL 70-105 (test wfnz=128) CALCIUM (BEAKER) (test 9.4 mg/dL 8.4-10.2 xerr=509) EGFR (BEAKER) (test mL/min/1.73 sq m INSUFFICIENT CLINICAL DATA kzkh=3918) TO CALCULATE ESTIMATED GFR. [id number] 07:19:00 Test Item Value Reference Range Comments MAGNESIUM (BEAKER) (test mzae=267) 2.0 mg/dL 1.6-2.6 CBC W/PLT COUNT & AUTO [id number] 06:58:00 Test Item Value Reference Range Comments WHITE BLOOD CELL COUNT 7.0 K/ L 3.5-10.5 (BEAKER) (test oeji=944) RED BLOOD CELL COUNT (BEAKER) 4.31 M/ L 4.63-6.08 (test ywfq=564) HEMOGLOBIN (BEAKER) (test 13.3 GM/DL 13.7-17.5 sbxv=065) HEMATOCRIT (BEAKER) (test 40.2 % 40.1-51.0 sfke=275) MEAN CORPUSCULAR VOLUME 93.3 fL 79.0-92.2 (BEAKER) (test dhcv=759) MEAN CORPUSCULAR HEMOGLOBIN 30.9 pg 25.7-32.2 (BEAKER) (test ibqu=209) MEAN CORPUSCULAR HEMOGLOBIN 33.1 GM/DL 32.3-36.5 CONC (BEAKER) (test dwqi=555) RED CELL DISTRIBUTION WIDTH 13.2 % 11.6-14.4 (BEAKER) (test uzvn=370) PLATELET COUNT (BEAKER) (test 269 K/CU MM 150-450 Discordant result compared lgpg=614) to previous result; clinical correlation required. MEAN PLATELET VOLUME (BEAKER) 8.9 fL 9.4-12.4 (test oozx=521) NUCLEATED RED BLOOD CELLS 0 /100 WBC 0-0 (BEAKER) (test vdlh=871) NEUTROPHILS RELATIVE PERCENT 62 % (BEAKER) (test gszf=931) LYMPHOCYTES RELATIVE PERCENT 21 % (BEAKER) (test iqlw=850) MONOCYTES RELATIVE PERCENT 12 % (BEAKER) (test jnua=089) EOSINOPHILS RELATIVE PERCENT 4 % (BEAKER) (test xqni=711) BASOPHILS RELATIVE PERCENT 1 % (BEAKER) (test ywzo=865) NEUTROPHILS ABSOLUTE COUNT 4.35 K/ L 1.78-5.38 (BEAKER) (test cywx=102) LYMPHOCYTES ABSOLUTE COUNT 1.46 K/ L 1.32-3.57 (BEAKER) (test eucx=067) MONOCYTES ABSOLUTE COUNT 0.82 K/ L 0.30-0.82 (BEAKER) (test cxgq=672) EOSINOPHILS ABSOLUTE COUNT 0.27 K/ L 0.04-0.54 (BEAKER) (test yxhg=196) BASOPHILS ABSOLUTE COUNT 0.04 K/ L 0.01-0.08 (BEAKER) (test czfi=138) IMMATURE 0 % 0-1 GRANULOCYTES-RELATIVE PERCENT (BEAKER) (test yxgs=6824) POCT-GLUCOSE [id number] 21:24:00 Test Item Value Reference Range Comments POC-GLUCOSE METER (BEAKER) 136 mg/dL 70-110 TESTED AT [address] (test utgx=5191) [facility] [address] POCT-GLUCOSE [id number] 18:50:00 Test Item Value Reference Range Comments POC-GLUCOSE METER (BEAKER) 217 mg/dL 70-110 TESTED AT [address] (test bqlf=1685) [facility] [address] POCT-GLUCOSE [id number] 14:07:00 Test Item Value Reference Range Comments POC-GLUCOSE METER (BEAKER) 178 mg/dL 70-110 TESTED AT [address] (test qvlx=9806) [facility] [address] POCT-GLUCOSE [id number] 08:14:00 Test Item Value Reference Range Comments POC-GLUCOSE METER (BEAKER) 138 mg/dL 70-110 TESTED AT [facility] [address] (test dgoo=0802) [facility] [address] BASIC METABOLIC [id number] 07:27:00 Test Item Value Reference Range Comments SODIUM (BEAKER) (test 136 meq/L 136-145 gaxa=507) POTASSIUM (BEAKER) (test 4.6 meq/L 3.5-5.1 vjno=687) CHLORIDE (BEAKER) (test 101 meq/L 98-107 ncar=214) CO2 (BEAKER) (test 27 meq/L 22-29 xawy=320) BLOOD UREA NITROGEN 8 mg/dL 7-21 (BEAKER) (test ylmp=591) CREATININE (BEAKER) (test 0.73 mg/dL 0.57-1.25 xpyj=412) GLUCOSE RANDOM (BEAKER) 152 mg/dL 70-105 (test nmjo=867) CALCIUM (BEAKER) (test 9.1 mg/dL 8.4-10.2 cbxx=558) EGFR (BEAKER) (test mL/min/1.73 sq m INSUFFICIENT CLINICAL DATA pvvb=8968) TO CALCULATE ESTIMATED GFR. [id number] 07:19:00 Test Item Value Reference Range Comments MAGNESIUM (BEAKER) (test lvrq=998) 1.9 mg/dL 1.6-2.6 CBC W/PLT COUNT & AUTO [id number] 06:57:00 Test Item Value Reference Range Comments WHITE BLOOD CELL COUNT (BEAKER) (test gmcy=238) 7.7 K/ L 3.5-10.5 RED BLOOD CELL COUNT (BEAKER) (test dflt=398) 4.07 M/ L 4.63-6.08 HEMOGLOBIN (BEAKER) (test xvfl=650) 12.6 GM/DL 13.7-17.5 HEMATOCRIT (BEAKER) (test dhmr=674) 37.9 % 40.1-51.0 MEAN CORPUSCULAR VOLUME (BEAKER) (test maey=987) 93.1 fL 79.0-92.2 MEAN CORPUSCULAR HEMOGLOBIN (BEAKER) (test 31.0 pg 25.7-32.2 gtwg=700) MEAN CORPUSCULAR HEMOGLOBIN CONC (BEAKER) (test 33.2 GM/DL 32.3-36.5 oyxl=671) RED CELL DISTRIBUTION WIDTH (BEAKER) (test 13.2 % 11.6-14.4 mgan=915) PLATELET COUNT (BEAKER) (test ipdq=172) 179 K/CU MM 150-450 MEAN PLATELET VOLUME (BEAKER) (test agtz=884) 9.4 fL 9.4-12.4 NUCLEATED RED BLOOD CELLS (BEAKER) (test 0 /100 WBC 0-0 hmvw=177) NEUTROPHILS RELATIVE PERCENT (BEAKER) (test 68 % ehox=883) LYMPHOCYTES RELATIVE PERCENT (BEAKER) (test 16 % eing=254) MONOCYTES RELATIVE PERCENT (BEAKER) (test 13 % htuq=134) EOSINOPHILS RELATIVE PERCENT (BEAKER) (test 2 % rmsm=696) BASOPHILS RELATIVE PERCENT (BEAKER) (test 0 % oeen=911) NEUTROPHILS ABSOLUTE COUNT (BEAKER) (test 5.27 K/ L 1.78-5.38 pzgw=897) LYMPHOCYTES ABSOLUTE COUNT (BEAKER) (test 1.24 K/ L 1.32-3.57 evsu=196) MONOCYTES ABSOLUTE COUNT (BEAKER) (test 0.99 K/ L 0.30-0.82 bydx=964) EOSINOPHILS ABSOLUTE COUNT (BEAKER) (test 0.17 K/ L 0.04-0.54 tteo=174) BASOPHILS ABSOLUTE COUNT (BEAKER) (test 0.02 K/ L 0.01-0.08 nqoc=354) IMMATURE GRANULOCYTES-RELATIVE PERCENT (BEAKER) 0 % 0-1 (test atfi=3904) POCT-GLUCOSE [id number] 23:07:00 Test Item Value Reference Range Comments POC-GLUCOSE METER (BEAKER) 178 mg/dL 70-110 TESTED AT [address] (test ltku=5804) [place] [id number] POCT-GLUCOSE [id number] 18:18:00 Test Item Value Reference Range Comments POC-GLUCOSE METER (BEAKER) 188 mg/dL 70-110 TESTED AT [address] (test dpyt=5201) [place] [id number] POCT-GLUCOSE [id number] 12:22:00 Test Item Value Reference Range Comments POC-GLUCOSE METER (BEAKER) 210 mg/dL 70-110 TESTED AT [address] (test rgfk=4550) [place] [address] RAD, CHEST, 1 VIEW, NON [id number] 10:04:00Reason for exam:->s/p ACBShould this be performed at the bedside?->YesFINAL REPORT Follow up Chest radiograph Clinical History: Short of breathComparison : October 18, 2018Views: One AP lordotic Chest x-ray:The cardiac and mediastinal silhouettes are unchanged. There is no evidence of a pneumothorax. There is no evidence of a pleural effusion.There is no evidence of overt cardiac failure. There is evidence of a right infrahilar and leftlower lobe retrocardiac space focal parenchymal opacity. Sternotomy changes are noted. Impression:Suboptimal inspiratory effort with atelectasis at both lung bases and cardiomegaly. No change Signed: Johnson Lr MDReport Verified Date/ Time: 10/19/2018 10:04:59 Reading Location: [facility] Radiology Reading Room POCT-GLUCOSE [id number] 08:24:00 Test Item Value Reference Range Comments POC-GLUCOSE METER (BEAKER) 247 mg/dL 70-110 TESTED AT [facility] [address] [place] [address] (test hibm=1170) [facility] [address] BASIC METABOLIC [id number] 07:25:00 Test Item Value Reference Range Comments SODIUM (BEAKER) (test 134 meq/L 136-145 gpgj=802) POTASSIUM (BEAKER) (test 4.2 meq/L 3.5-5.1 mykr=655) CHLORIDE (BEAKER) (test 102 meq/L 98-107 lnot=470) CO2 (BEAKER) (test 23 meq/L 22-29 wupn=272) BLOOD UREA NITROGEN 10 mg/dL 7-21 (BEAKER) (test nfwt=509) CREATININE (BEAKER) (test 0.78 mg/dL 0.57-1.25 vslc=390) GLUCOSE RANDOM (BEAKER) 189 mg/dL 70-105 (test aydk=340) CALCIUM (BEAKER) (test 9.1 mg/dL 8.4-10.2 gsxb=420) EGFR (BEAKER) (test mL/min/1.73 sq m INSUFFICIENT CLINICAL DATA nzbz=7618) TO CALCULATE ESTIMATED GFR. [id number] 07:19:00 Test Item Value Reference Range Comments PHOSPHORUS (BEAKER) (test njry=831) 2.1 mg/dL 2.3-4.7 [id number] 07:19:00 Test Item Value Reference Range Comments MAGNESIUM (BEAKER) (test inbo=971) 1.9 mg/dL 1.6-2.6 CBC (HEMOGRAM ONLY)2018-10-19 07:02:00 Test Item Value Reference Range Comments WHITE BLOOD CELL COUNT (BEAKER) (test mpis=187) 10.5 K/ L 3.5-10.5 RED BLOOD CELL COUNT (BEAKER) (test qlmc=398) 4.49 M/ L 4.63-6.08 HEMOGLOBIN (BEAKER) (test bmkl=605) 13.7 GM/DL 13.7-17.5 HEMATOCRIT (BEAKER) (test gdub=632) 42.3 % 40.1-51.0 MEAN CORPUSCULAR VOLUME (BEAKER) (test jkpv=993) 94.2 fL 79.0-92.2 MEAN CORPUSCULAR HEMOGLOBIN (BEAKER) (test 30.5 pg 25.7-32.2 nbnp=591) MEAN CORPUSCULAR HEMOGLOBIN CONC (BEAKER) (test 32.4 GM/DL 32.3-36.5 izkb=797) RED CELL DISTRIBUTION WIDTH (BEAKER) (test 13.6 % 11.6-14.4 wjja=822) PLATELET COUNT (BEAKER) (test qsue=994) 186 K/CU MM 150-450 MEAN PLATELET VOLUME (BEAKER) (test lioh=679) 9.6 fL 9.4-12.4 NUCLEATED RED BLOOD CELLS (BEAKER) (test 0 /100 WBC 0-0 cara=743) POCT-GLUCOSE [id number] 21:38:00 Test Item Value Reference Range Comments POC-GLUCOSE METER (BEAKER) 275 mg/dL 70-110 TESTED AT [address] (test zmyf=0380) [place] [address] RAD, CHEST, 1 VIEW, NON [id number] 21:00:00SOB. POST CHEST TUBE REMOVALFINAL REPORT CLINICAL INDICATION: Shortness of breath, wheezing post chest tube removal Comparison: Same date at 0415 hours The cardiomediastinal contours are stable after mediastinal drain removal. The lung volumes remain low. Mild central pulmonary vascular prominence and bilateral parenchymal opacities are grossly unchanged. There is no pneumothorax after left chest tube removal. A right IJ CVC has been removed. IMPRESSION: Interval removal of multiple support lines. Otherwise stable chest. Signed: Skyler Lopez MDReport Verified Date/Time: 10/18/2018 21:00:18 Reading Location : [address] Reading Room POCT-GLUCOSE [id number] 19:33:00 Test Item Value Reference Range Comments POC-GLUCOSE METER (BEAKER) 232 mg/dL 70-110 TESTED AT [address] (test sgbk=5893) [facility] [address] POCT-GLUCOSE [id number] 15:52:00 Test Item Value Reference Range Comments POC-GLUCOSE METER (BEAKER) 145 mg/dL 70-110 TESTED AT [address] (test dafu=1145) [facility] [address] POCT-GLUCOSE [id number] 13:55:00 Test Item Value Reference Range Comments POC-GLUCOSE METER (BEAKER) 163 mg/dL 70-110 TESTED AT [address] (test xjlb=0267) [facility] [address] POCT-GLUCOSE [id number] 12:06:00 Test Item Value Reference Range Comments POC-GLUCOSE METER (BEAKER) 122 mg/dL 70-110 TESTED AT [address] (test vobi=1964) [facility] [address] POCT-GLUCOSE [id number] 09:59:00 Test Item Value Reference Range Comments POC-GLUCOSE METER (BEAKER) 160 mg/dL 70-110 TESTED AT [address] (test cbsf=9541) [facility] [address] POCT-GLUCOSE [id number] 09:59:00 Test Item Value Reference Range Comments POC-GLUCOSE METER (BEAKER) 163 mg/dL 70-110 TESTED AT [address] (test bdws=6597) [facility] [address] POCT-GLUCOSE [id number] 08:29:00 Test Item Value Reference Range Comments POC-GLUCOSE METER (BEAKER) 140 mg/dL 70-110 TESTED AT [facility] [address] [facility] (test ztnf=9581) [facility] [address] POCT-GLUCOSE [id number] 08:29:00 Test Item Value Reference Range Comments POC-GLUCOSE METER (BEAKER) 138 mg/dL 70-110 TESTED AT [place] [id number] [facility] (test cmxb=5304) [facility] [address] POCT-GLUCOSE [id number] 08:29:00 Test Item Value Reference Range Comments POC-GLUCOSE METER (BEAKER) 140 mg/dL 70-110 TESTED AT [address] (test nisb=5061) [facility] [address] RAD, CHEST, 1 VIEW, NON [id number] 06:51:00while patient is intubated or has chest tubes.Reason for exam:->Status post CV SurgeryShould thisbe performed at the bedside?->YesFINAL REPORT RAD, CHEST , 1 VIEW, NON DEPT INDICATION: Status post CV Surgery COMPARISON: Prior day's exam FINDINGS: Portable frontal view of the chest. IMPRESSION: Support Lines : Right IJ catheter and sternotomy wires are unchanged. Left-sided chest tubes are unchanged. Density is noted projecting left lateral chest tube tip. Lungs and pleura: Left basilar atelectasis. Superimposed infection may be excluded clinically. No pneumothorax.Heart and mediastinum: Stable contours. Additional findings: None. Signed: Tessa Light MDReport Verified Date/Time: 10/18/2018 06:51:28 Reading Location: [address] Neuro Reading Room BASIC METABOLIC [id number] 06:15:00 Test Item Value Reference Range Comments SODIUM (BEAKER) (test 140 meq/L 136-145 queb=458) POTASSIUM (BEAKER) (test 4.3 meq/L 3.5-5.1 Specimen slightly jayr=697) hemolyzed CHLORIDE (BEAKER) (test 110 meq/L 98-107 qlct=703) CO2 (BEAKER) (test 23 meq/L 22-29 lcev=440) BLOOD UREA NITROGEN 8 mg/dL 7-21 (BEAKER) (test cjof=895) CREATININE (BEAKER) (test 0.74 mg/dL 0.57-1.25 Specimen slightly ikwg=433) hemolyzed GLUCOSE RANDOM (BEAKER) 126 mg/dL 70-105 (test ljzi=803) CALCIUM (BEAKER) (test 8.5 mg/dL 8.4-10.2 ubsy=648) EGFR (BEAKER) (test mL/min/1.73 sq m INSUFFICIENT CLINICAL DATA cjyu=5033) TO CALCULATE ESTIMATED GFR. COMPREHENSIVE METABOLIC [id number] 06:15:00 Test Item Value Reference Range Comments TOTAL PROTEIN (BEAKER) 5.5 gm/dL 6.0-8.3 Specimen slightly (test lvtg=945) hemolyzed ALBUMIN (BEAKER) (test 3.5 g/dL 3.5-5.0 Specimen slightly prjs=2407) hemolyzed ALKALINE PHOSPHATASE 29 U/L 40-150 (BEAKER) (test xhdo=775) BILIRUBIN TOTAL (BEAKER) 1.5 mg/dL 0.2-1.2 Specimen slightly (test fnzk=945) hemolyzed SODIUM (BEAKER) (test 140 meq/L 136-145 rpsu=672) POTASSIUM (BEAKER) (test 4.3 meq/L 3.5-5.1 Specimen slightly mhbh=815) hemolyzed CHLORIDE (BEAKER) (test 110 meq/L 98-107 olkk=570) CO2 (BEAKER) (test 23 meq/L 22-29 xqzr=153) BLOOD UREA NITROGEN 8 mg/dL 7-21 (BEAKER) (test blbl=307) CREATININE (BEAKER) (test 0.74 mg/dL 0.57-1.25 Specimen slightly tspp=772) hemolyzed GLUCOSE RANDOM (BEAKER) 126 mg/dL 70-105 (test ezss=194) CALCIUM (BEAKER) (test 8.5 mg/dL 8.4-10.2 mnhv=369) AST (SGOT) (BEAKER) (test 35 U/L 5-34 Specimen slightly ewyj=851) hemolyzed ALT (SGPT) (BEAKER) (test 32 U/L 6-55 Specimen slightly dbag=009) hemolyzed EGFR (BEAKER) (test mL/min/1.73 sq m INSUFFICIENT CLINICAL DATA obvx=1915) TO CALCULATE ESTIMATED GFR. [id number] 06:04:00 Test Item Value Reference Range Comments MAGNESIUM (BEAKER) (test 1.9 mg/dL 1.6-2.6 Specimen slightly hemolyzed ovef=483) [id number] 06:04:00 Test Item Value Reference Range Comments PHOSPHORUS (BEAKER) (test 4.3 mg/dL 2.3-4.7 Specimen slightly hemolyzed fiaw=876) [id number] 06:04:00 Test Item Value Reference Range Comments GLUCOSE RANDOM (BEAKER) (test nama=622) 126 mg/dL 70-105 CBC W/PLT COUNT & AUTO [id number] 05:43:00 Test Item Value Reference Range Comments WHITE BLOOD CELL COUNT (BEAKER) (test gpks=296) 8.0 K/ L 3.5-10.5 RED BLOOD CELL COUNT (BEAKER) (test mtsc=335) 4.29 M/ L 4.63-6.08 HEMOGLOBIN (BEAKER) (test coyt=314) 13.2 GM/DL 13.7-17.5 HEMATOCRIT (BEAKER) (test dqql=144) 40.3 % 40.1-51.0 MEAN CORPUSCULAR VOLUME (BEAKER) (test uoml=691) 93.9 fL 79.0-92.2 MEAN CORPUSCULAR HEMOGLOBIN (BEAKER) (test 30.8 pg 25.7-32.2 jvsq=386) MEAN CORPUSCULAR HEMOGLOBIN CONC (BEAKER) (test 32.8 GM/DL 32.3-36.5 mdij=830) RED CELL DISTRIBUTION WIDTH (BEAKER) (test 13.2 % 11.6-14.4 jxnj=400) PLATELET COUNT (BEAKER) (test uhsv=055) 167 K/CU MM 150-450 MEAN PLATELET VOLUME (BEAKER) (test sfja=985) 9.1 fL 9.4-12.4 NUCLEATED RED BLOOD CELLS (BEAKER) (test 0 /100 WBC 0-0 ceyb=842) NEUTROPHILS RELATIVE PERCENT (BEAKER) (test 74 % yopp=383) LYMPHOCYTES RELATIVE PERCENT (BEAKER) (test 11 % dkqs=706) MONOCYTES RELATIVE PERCENT (BEAKER) (test 13 % rrhv=976) EOSINOPHILS RELATIVE PERCENT (BEAKER) (test 0 % sjln=587) BASOPHILS RELATIVE PERCENT (BEAKER) (test 0 % dzxm=201) NEUTROPHILS ABSOLUTE COUNT (BEAKER) (test 5.93 K/ L 1.78-5.38 wpve=405) LYMPHOCYTES ABSOLUTE COUNT (BEAKER) (test 0.90 K/ L 1.32-3.57 gpdm=606) MONOCYTES ABSOLUTE COUNT (BEAKER) (test 1.07 K/ L 0.30-0.82 jxnx=214) EOSINOPHILS ABSOLUTE COUNT (BEAKER) (test 0.02 K/ L 0.04-0.54 dnxw=408) BASOPHILS ABSOLUTE COUNT (BEAKER) (test 0.03 K/ L 0.01-0.08 fjmx=362) IMMATURE GRANULOCYTES-RELATIVE PERCENT (BEAKER) 1 % 0-1 (test pdxn=4600) BLOOD GAS, [id number] 05:36:00 Test Item Value Reference Range Comments PH ARTERIAL (BEAKER) (test kmac=680) 7.35 7.35-7.45 PCO2 ARTERIAL (BEAKER) (test trqj=584) 44 mmHg 35-45 PO2 ARTERIAL (BEAKER) (test oddf=744) 76 mmHg 80-90 O2 SATURATION ARTERIAL (BEAKER) (test lbmv=879) 94.0 % 96.0-97.0 HCO3 ARTERIAL (BEAKER) (test eetg=211) 24 mmol/L 21-29 BASE EXCESS ARTERIAL (BEAKER) (test vowp=145) -2.0 mmol/L -2.0-3.0 PATIENT TEMPERATURE (BEAKER) (test cxsi=1984) 37.7 C FIO2 (BEAKER) (test dcuz=7795) 40.0 % POCT-GLUCOSE [id number] 03:00:00 Test Item Value Reference Range Comments POC-GLUCOSE METER (BEAKER) 138 mg/dL 70-110 TESTED AT [address] (test ijab=4108) [facility] [id number] POCT-GLUCOSE [id number] 01:44:00 Test Item Value Reference Range Comments POC-GLUCOSE METER (BEAKER) 134 mg/dL 70-110 TESTED AT [address] (test ptfa=4076) [place] [id number] POCT-GLUCOSE [id number] 01:44:00 Test Item Value Reference Range Comments POC-GLUCOSE METER (BEAKER) 167 mg/dL 70-110 TESTED AT [address] (test iwxc=6265) [place] [id number] RAD, CHEST, 1 VIEW, NON [id number] 00:29:00Reason for exam:->eval for bleeding post opShould this be performed at the bedside?->YesFINAL REPORT RAD, CHEST, 1 VIEW, NON DEPT INDICATION: eval for bleeding post op COMPARISON: Prior day exam October 17 2018 2:18pm FINDINGS: Portable frontal view of the chest.IMPRESSION: Support Lines: Interval removal of ET tube and NG tube. Right IJ catheter tip terminates overlying the SVC, unchanged. Sternotomy wires are unchanged. External leads and left-sided chest tube are redemonstrated Lungs and pleura: Interval increased atelectatic change within the left lower lung adjacent to the chest tube. Interval development of small left pleural effusion. Left retrocardiac atelectasis is unchanged. No pneumothorax.Heart and mediastinum: Stable contours. Additional findings: None. Signed: [facility] Verified Date/Time: 10/18/2018 00:29:27 Reading Location: [address] Neuro Reading Room POCT-GLUCOSE [id number] 00:20:00 Test Item Value Reference Range Comments POC-GLUCOSE METER (BEAKER) 173 mg/dL 70-110 TESTED AT [address] (test utgh=1859) [facility] [address] POCT-GLUCOSE [id number] 00:20:00 Test Item Value Reference Range Comments POC-GLUCOSE METER (BEAKER) 81 mg/dL 70-110 TESTED AT [address] (test yxwd=6444) [facility] [address] POCT-GLUCOSE [id number] 00:20:00 Test Item Value Reference Range Comments POC-GLUCOSE METER (BEAKER) 172 mg/dL 70-110 TESTED AT [address] (test yxfr=6373) [facility] [address] HEMOGLOBIN AND [id number] 23:21:00 Test Item Value Reference Range Comments HEMOGLOBIN (BEAKER) (test qpge=320) 7.8 GM/DL 13.7-17.5 HEMATOCRIT (BEAKER) (test iutd=680) 24.2 % 40.1-51.0 BLOOD GAS, [id number] 22:03:00 Test Item Value Reference Range Comments PH ARTERIAL (BEAKER) (test yoha=007) 7.39 7.35-7.45 PCO2 ARTERIAL (BEAKER) (test pvca=970) 39 mmHg 35-45 PO2 ARTERIAL (BEAKER) (test pemh=533) 85 mmHg 80-90 O2 SATURATION ARTERIAL (BEAKER) (test ruxn=602) 96.4 % 96.0-97.0 HCO3 ARTERIAL (BEAKER) (test odqk=038) 23 mmol/L 21-29 BASE EXCESS ARTERIAL (BEAKER) (test ttje=030) -1.8 mmol/L -2.0-3.0 PATIENT TEMPERATURE (BEAKER) (test jvmz=1359) 37.0 C FIO2 (BEAKER) (test xiua=0178) 36.0 % [id number] 21:53:00 Test Item Value Reference Range Comments MAGNESIUM (BEAKER) (test 1.9 mg/dL 1.6-2.6 Specimen slightly hemolyzed tgts=025) [id number] 20:50:00 Test Item Value Reference Range Comments MAGNESIUM (BEAKER) (test 2.4 mg/dL 1.6-2.6 Specimen moderately hemolyzed ynou=141) CALCIUM, [id number] 19:43:00 Test Item Value Reference Range Comments CALCIUM IONIZED (BEAKER) (test hadv=041) 1.06 mmol/L 1.12-1.27 PH, BLOOD (BEAKER) (test nbxj=4637) 7.42 GLUCOSE-STAT [id number] 19:41:00 Test Item Value Reference Range Comments GLUCOSE RANDOM (BEAKER) (test narx=726) 149 mg/dL 70-110 HGB/HCT (H&H) - STAT [id number] 19:41:00 Test Item Value Reference Range Comments HEMOGLOBIN (BEAKER) (test xrkp=291) 12.9 g/dL 13.0-16.8 HEMATOCRIT (BEAKER) (test knfi=801) 38.0 % 40.0-50.0 BLOOD GAS, [id number] 19:40:00 Test Item Value Reference Range Comments PH ARTERIAL (BEAKER) (test apaf=741) 7.42 7.35-7.45 PCO2 ARTERIAL (BEAKER) (test eelx=411) 40 mmHg 35-45 PO2 ARTERIAL (BEAKER) (test nzzk=126) 84 mmHg 80-90 O2 SATURATION ARTERIAL (BEAKER) (test vsty=647) 96.2 % 96.0-97.0 HCO3 ARTERIAL (BEAKER) (test wfqj=353) 25 mmol/L 21-29 BASE EXCESS ARTERIAL (BEAKER) (test raok=964) 0.9 mmol/L -2.0-3.0 PATIENT TEMPERATURE (BEAKER) (test dnib=9145) 37.7 C FIO2 (BEAKER) (test uehy=1033) 40.0 % SODIUM NA-STAT [id number] 19:40:00 Test Item Value Reference Range Comments SODIUM (BEAKER) (test ioic=713) 136 meq/L 135-148 POTASSIUM-STAT [id number] 19:40:00 Test Item Value Reference Range Comments POTASSIUM (BEAKER) (test fxpn=878) 3.9 meq/L 3.6-5.5 HEMOGLOBIN AND [id number] 18:40:00 Test Item Value Reference Range Comments HEMOGLOBIN (BEAKER) (test smmn=505) 13.4 GM/DL 13.7-17.5 HEMATOCRIT (BEAKER) (test bjic=829) 40.2 % 40.1-51.0 BLOOD GAS, [id number] 18:31:00 Test Item Value Reference Range Comments PH ARTERIAL (BEAKER) (test tziz=443) 7.44 7.35-7.45 PCO2 ARTERIAL (BEAKER) (test irip=405) 37 mmHg 35-45 PO2 ARTERIAL (BEAKER) (test djld=969) 85 mmHg 80-90 O2 SATURATION ARTERIAL (BEAKER) (test fqvl=296) 96.9 % 96.0-97.0 HCO3 ARTERIAL (BEAKER) (test rrax=945) 25 mmol/L 21-29 BASE EXCESS ARTERIAL (BEAKER) (test lkbh=677) 0.5 mmol/L -2.0-3.0 PATIENT TEMPERATURE (BEAKER) (test vhrz=2643) 36.7 C FIO2 (BEAKER) (test tkwb=8711) 40.0 % BLOOD GAS, [id number] 17:22:00 Test Item Value Reference Range Comments PH ARTERIAL (BEAKER) (test csjf=878) 7.40 7.35-7.45 PCO2 ARTERIAL (BEAKER) (test ftjx=541) 39 mmHg 35-45 PO2 ARTERIAL (BEAKER) (test khoz=476) 93 mmHg 80-90 O2 SATURATION ARTERIAL (BEAKER) (test qxip=321) 97.2 % 96.0-97.0 HCO3 ARTERIAL (BEAKER) (test gzmk=154) 24 mmol/L 21-29 BASE EXCESS ARTERIAL (BEAKER) (test agui=832) -1.3 mmol/L -2.0-3.0 PATIENT TEMPERATURE (BEAKER) (test bopp=5921) 36.7 C FIO2 (BEAKER) (test yhbp=2422) 40.0 % POCT-GLUCOSE [id number] 16:47:00 Test Item Value Reference Range Comments POC-GLUCOSE METER (BEAKER) 202 mg/dL 70-110 TESTED AT [facility] [address] [facility] (test wxze=7324) [facility] [address] BASIC METABOLIC [id number] 15:15:00 Test Item Value Reference Range Comments SODIUM (BEAKER) (test 137 meq/L 136-145 kkbh=327) POTASSIUM (BEAKER) (test 4.6 meq/L 3.5-5.1 Specimen slightly dvbd=281) hemolyzed CHLORIDE (BEAKER) (test 106 meq/L 98-107 lenb=879) CO2 (BEAKER) (test 24 meq/L 22-29 fmwc=827) BLOOD UREA NITROGEN 9 mg/dL 7-21 (BEAKER) (test goje=377) CREATININE (BEAKER) (test 0.74 mg/dL 0.57-1.25 Specimen slightly frrv=233) hemolyzed GLUCOSE RANDOM (BEAKER) 206 mg/dL 70-105 (test hvzb=268) CALCIUM (BEAKER) (test 8.9 mg/dL 8.4-10.2 iuiy=588) EGFR (BEAKER) (test mL/min/1.73 sq m INSUFFICIENT CLINICAL DATA gedb=8368) TO CALCULATE ESTIMATED GFR. LACTIC ACID, ARTERIAL, WHOLE [id number] 15:13:00 Test Item Value Reference Range Comments LACTATE BLOOD ARTERIAL (2) 0.8 mmol/L 0.5-2.2 Specimen slightly hemolyzed (BEAKER) (test kpna=3242) [id number] 15:10:00 Test Item Value Reference Range Comments MAGNESIUM (BEAKER) (test 2.1 mg/dL 1.6-2.6 Specimen slightly hemolyzed bcnw=513) [id number] 15:10:00 Test Item Value Reference Range Comments PHOSPHORUS (BEAKER) (test 3.6 mg/dL 2.3-4.7 Specimen slightly hemolyzed ftii=836) OXYGEN SATURATION, [id number] 14:57:00 Test Item Value Reference Range Comments O2 SATURATION (MEASURED) (BEAKER) (test padp=8254) 54.3 % RAD, CHEST, 1 VIEW, NON [id number] 14:49:00Reason for exam:->post ACBShould this be performed at the bedside?->YesFINAL REPORT Portable chest. CLINICAL HISTORY: post ACB. COMPARISON STUDY: Chest x- ray from yesterday. FINDINGS: The cardiac silhouette is unremarkable. Sternotomy wires are seen. The pulmonary parenchyma demonstrates increased markings with atelectatic changes. An endotracheal tube, nasogastric tube, right -sided jugular line, mediastinal drain and left-sided chest tube are seen. No pneumothorax is seen. Degenerative changes are noted. IMPRESSION: Postsurgical changes as detailed above. Signed: Manjinder Ahumada MDReport Verified Date/Time: 10/17/2018 14:49:01 Reading Location: [address] Consult Reading Room 02:49 PMBLOOD GAS, [id number] 14:47:00 Test Item Value Reference Range Comments PH ARTERIAL (BEAKER) (test sroo=038) 7.37 7.35-7.45 PCO2 ARTERIAL (BEAKER) (test gqwy=656) 41 mmHg 35-45 PO2 ARTERIAL (BEAKER) (test gmbc=088) 82 mmHg 80-90 O2 SATURATION ARTERIAL (BEAKER) (test xjkj=854) 96.0 % 96.0-97.0 HCO3 ARTERIAL (BEAKER) (test gpty=659) 23 mmol/L 21-29 BASE EXCESS ARTERIAL (BEAKER) (test adwu=970) -2.4 mmol/L -2.0-3.0 PATIENT TEMPERATURE (BEAKER) (test dxbk=2773) 36.4 C FIO2 (BEAKER) (test puog=0079) 60.0 % CBC W/PLT COUNT & AUTO [id number] 14:43:00 Test Item Value Reference Range Comments WHITE BLOOD CELL COUNT (BEAKER) (test mxdx=617) 14.1 K/ L 3.5-10.5 RED BLOOD CELL COUNT (BEAKER) (test gfqm=065) 5.03 M/ L 4.63-6.08 HEMOGLOBIN (BEAKER) (test viaa=577) 15.6 GM/DL 13.7-17.5 HEMATOCRIT (BEAKER) (test lxdt=686) 46.6 % 40.1-51.0 MEAN CORPUSCULAR VOLUME (BEAKER) (test ttyi=795) 92.6 fL 79.0-92.2 MEAN CORPUSCULAR HEMOGLOBIN (BEAKER) (test 31.0 pg 25.7-32.2 dkpw=279) MEAN CORPUSCULAR HEMOGLOBIN CONC (BEAKER) (test 33.5 GM/DL 32.3-36.5 selv=660) RED CELL DISTRIBUTION WIDTH (BEAKER) (test 12.9 % 11.6-14.4 wkgi=588) PLATELET COUNT (BEAKER) (test txed=801) 174 K/CU MM 150-450 MEAN PLATELET VOLUME (BEAKER) (test ppos=270) 9.0 fL 9.4-12.4 NUCLEATED RED BLOOD CELLS (BEAKER) (test 0 /100 WBC 0-0 djio=337) NEUTROPHILS RELATIVE PERCENT (BEAKER) (test 77 % bynn=618) LYMPHOCYTES RELATIVE PERCENT (BEAKER) (test 14 % amro=538) MONOCYTES RELATIVE PERCENT (BEAKER) (test 6 % dikd=710) EOSINOPHILS RELATIVE PERCENT (BEAKER) (test 2 % cmre=231) BASOPHILS RELATIVE PERCENT (BEAKER) (test 0 % drcv=929) NEUTROPHILS ABSOLUTE COUNT (BEAKER) (test 10.84 K/ L 1.78-5.38 dfnc=478) LYMPHOCYTES ABSOLUTE COUNT (BEAKER) (test 2.01 K/ L 1.32-3.57 sphq=575) MONOCYTES ABSOLUTE COUNT (BEAKER) (test 0.81 K/ L 0.30-0.82 ipsq=862) EOSINOPHILS ABSOLUTE COUNT (BEAKER) (test 0.27 K/ L 0.04-0.54 nxzh=825) BASOPHILS ABSOLUTE COUNT (BEAKER) (test 0.04 K/ L 0.01-0.08 eckc=234) IMMATURE GRANULOCYTES-RELATIVE PERCENT (BEAKER) 1 % 0-1 (test dylv=1372) [id number] 13:57:00 Test Item Value Reference Range Comments ACTIVATED CLOTTING TIME (BEAKER) 92 sec TESTED AT [place] [address] [facility] (test capb=802) [place] [address] [id number] 13:57:00 Test Item Value Reference Range Comments ACTIVATED CLOTTING TIME 477 sec TESTED AT [place] [address] [facility] (BEAKER) (test uele=026) [place] [address] [id number] 13:57:00 Test Item Value Reference Range Comments ACTIVATED CLOTTING TIME 378 sec TESTED AT [place] [address] [facility] (BEAKER) (test tplz=004) [place] [address] [id number] 13:57:00 Test Item Value Reference Range Comments ACTIVATED CLOTTING TIME 499 sec TESTED AT [place] [address] [facility] (BEAKER) (test scon=909) [place] [address] CALCIUM, [id number] 13:37:00 Test Item Value Reference Range Comments CALCIUM IONIZED (BEAKER) (test cssv=212) 1.15 mmol/L 1.12-1.27 PH, BLOOD (BEAKER) (test ruhm=3786) 7.35 HGB/HCT (H&H) - STAT [id number] 13:36:00 Test Item Value Reference Range Comments HEMOGLOBIN (BEAKER) (test wnxi=803) 12.8 g/dL 13.0-16.8 HEMATOCRIT (BEAKER) (test xjaz=633) 38.0 % 40.0-50.0 SODIUM NA-STAT [id number] 13:35:00 Test Item Value Reference Range Comments SODIUM (BEAKER) (test fucm=149) 136 meq/L 135-148 POTASSIUM-STAT [id number] 13:35:00 Test Item Value Reference Range Comments POTASSIUM (BEAKER) (test awkw=576) 4.8 meq/L 3.6-5.5 BLOOD GAS, [id number] 13:35:00 Test Item Value Reference Range Comments PH ARTERIAL (BEAKER) (test yrzh=222) 7.36 7.35-7.45 PCO2 ARTERIAL (BEAKER) (test qmsm=065) 44 mmHg 35-45 PO2 ARTERIAL (BEAKER) (test qrqy=978) 188 mmHg 80-90 O2 SATURATION ARTERIAL (BEAKER) (test aepn=612) 99.2 % 96.0-97.0 HCO3 ARTERIAL (BEAKER) (test cwoz=581) 25 mmol/L 21-29 BASE EXCESS ARTERIAL (BEAKER) (test wocs=060) -1.4 mmol/L -2.0-3.0 PATIENT TEMPERATURE (BEAKER) (test wkic=7057) 36.0 C FIO2 (BEAKER) (test kmmg=2727) 100.0 % GLUCOSE-STAT [id number] 13:35:00 Test Item Value Reference Range Comments GLUCOSE RANDOM (BEAKER) (test rchu=769) 221 mg/dL 70-110 BLOOD GAS, [id number] 12:40:00 Test Item Value Reference Range Comments PH ARTERIAL (BEAKER) (test ykjs=433) 7.46 7.35-7.45 PCO2 ARTERIAL (BEAKER) (test hplc=061) 34 mmHg 35-45 PO2 ARTERIAL (BEAKER) (test lrwp=439) 277 mmHg 80-90 O2 SATURATION ARTERIAL (BEAKER) (test oqqb=719) 99.7 % 96.0-97.0 HCO3 ARTERIAL (BEAKER) (test outh=061) 24 mmol/L 21-29 BASE EXCESS ARTERIAL (BEAKER) (test znuk=894) 0.1 mmol/L -2.0-3.0 PATIENT TEMPERATURE (BEAKER) (test hqpz=6385) 34.7 C FIO2 (BEAKER) (test mgvu=7664) 60.0 % SODIUM NA-STAT [id number] 12:40:00 Test Item Value Reference Range Comments SODIUM (BEAKER) (test mbpc=047) 132 meq/L 135-148 POTASSIUM-STAT [id number] 12:40:00 Test Item Value Reference Range Comments POTASSIUM (BEAKER) (test xsdc=890) 5.7 meq/L 3.6-5.5 GLUCOSE-STAT [id number] 12:40:00 Test Item Value Reference Range Comments GLUCOSE RANDOM (BEAKER) (test ssnw=579) 217 mg/dL 70-110 HGB/HCT (H&H) - STAT [id number] 12:40:00 Test Item Value Reference Range Comments HEMOGLOBIN (BEAKER) (test jyqd=932) 11.4 g/dL 13.0-16.8 HEMATOCRIT (BEAKER) (test ioav=654) 34.0 % 40.0-50.0 POCT-GLUCOSE [id number] 12:15:00 Test Item Value Reference Range Comments POC-GLUCOSE METER (BEAKER) 175 mg/dL 70-110 TESTED AT [facility] [address] [facility] (test okym=6708) [facility] [address] BLOOD GAS, [id number] 12:08:00 Test Item Value Reference Range Comments PH ARTERIAL (BEAKER) (test jplv=231) 7.37 7.35-7.45 PCO2 ARTERIAL (BEAKER) (test efir=064) 41 mmHg 35-45 PO2 ARTERIAL (BEAKER) (test hbae=748) 379 mmHg 80-90 O2 SATURATION ARTERIAL (BEAKER) (test vcjr=796) 99.8 % 96.0-97.0 HCO3 ARTERIAL (BEAKER) (test ldbm=960) 25 mmol/L 21-29 BASE EXCESS ARTERIAL (BEAKER) (test ugnn=466) -2.4 mmol/L -2.0-3.0 PATIENT TEMPERATURE (BEAKER) (test jmxn=8417) 31.4 C FIO2 (BEAKER) (test qnlz=7992) 60.0 % SODIUM NA-STAT [id number] 12:08:00 Test Item Value Reference Range Comments SODIUM (BEAKER) (test bvfm=237) 130 meq/L 135-148 GLUCOSE-STAT [id number] 12:08:00 Test Item Value Reference Range Comments GLUCOSE RANDOM (BEAKER) (test qlba=967) 200 mg/dL 70-110 HGB/HCT (H&H) - STAT [id number] 12:08:00 Test Item Value Reference Range Comments HEMOGLOBIN (BEAKER) (test igqu=582) 10.9 g/dL 13.0-16.8 HEMATOCRIT (BEAKER) (test mppg=255) 32.0 % 40.0-50.0 POTASSIUM-STAT [id number] 12:07:00 Test Item Value Reference Range Comments POTASSIUM (BEAKER) (test twdu=912) 5.3 meq/L 3.6-5.5 BLOOD GAS, [id number] 11:18:00 Test Item Value Reference Range Comments PH ARTERIAL (BEAKER) (test anpf=814) 7.39 7.35-7.45 PCO2 ARTERIAL (BEAKER) (test kdgw=531) 40 mmHg 35-45 PO2 ARTERIAL (BEAKER) (test xslg=942) 306 mmHg 80-90 O2 SATURATION ARTERIAL (BEAKER) (test ezyk=494) 99.7 % 96.0-97.0 HCO3 ARTERIAL (BEAKER) (test uzdd=234) 24 mmol/L 21-29 BASE EXCESS ARTERIAL (BEAKER) (test rxqb=271) -0.8 mmol/L -2.0-3.0 PATIENT TEMPERATURE (BEAKER) (test fkwx=1421) 36.6 C FIO2 (BEAKER) (test vtwh=7539) 100.0 % GLUCOSE-STAT [id number] 11:18:00 Test Item Value Reference Range Comments GLUCOSE RANDOM (BEAKER) (test ehkf=549) 124 mg/dL 70-110 SODIUM NA-STAT [id number] 11:17:00 Test Item Value Reference Range Comments SODIUM (BEAKER) (test notl=963) 138 meq/L 135-148 POTASSIUM-STAT [id number] 11:17:00 Test Item Value Reference Range Comments POTASSIUM (BEAKER) (test mxxt=194) 4.4 meq/L 3.6-5.5 HGB/HCT (H&H) - STAT [id number] 11:17:00 Test Item Value Reference Range Comments HEMOGLOBIN (BEAKER) (test hzic=143) 15.8 g/dL 13.0-16.8 HEMATOCRIT (BEAKER) (test bfxv=626) 46.0 % 40.0-50.0 CALCIUM, [id number] 11:17:00 Test Item Value Reference Range Comments CALCIUM IONIZED (BEAKER) (test lcnn=956) 1.16 mmol/L 1.12-1.27 PH, BLOOD (BEAKER) (test futr=9482) 7.39 BASIC METABOLIC [id number] 04:46:00 Test Item Value Reference Range Comments SODIUM (BEAKER) (test 140 meq/L 136-145 ibcs=947) POTASSIUM (BEAKER) (test 4.1 meq/L 3.5-5.1 lisn=055) CHLORIDE (BEAKER) (test 108 meq/L 98-107 zxxf=154) CO2 (BEAKER) (test 23 meq/L 22-29 xoaq=275) BLOOD UREA NITROGEN 10 mg/dL 7-21 (BEAKER) (test eiev=891) CREATININE (BEAKER) (test 0.78 mg/dL 0.57-1.25 ednb=988) GLUCOSE RANDOM (BEAKER) 146 mg/dL 70-105 (test bdju=664) CALCIUM (BEAKER) (test 9.3 mg/dL 8.4-10.2 aegs=696) EGFR (BEAKER) (test mL/min/1.73 sq m INSUFFICIENT CLINICAL DATA qzjw=9848) TO CALCULATE ESTIMATED GFR. [id number] 04:45:00 Test Item Value Reference Range Comments PARTIAL THROMBOPLASTIN TIME (BEAKER) (test 35.7 seconds 22.5-36.0 mfve=154) PLATELET [id number] 04:23:00 Test Item Value Reference Range Comments PLATELET COUNT (BEAKER) (test dpwn=348) 235 K/CU MM 150-450 POCT-GLUCOSE [id number] 21:17:00 Test Item Value Reference Range Comments POC-GLUCOSE METER (BEAKER) 139 mg/dL 70-110 TESTED AT [facility] [address] [facility] (test apmr=4298) [facility] [address] [id number] 19:16:00 Test Item Value Reference Range Comments PARTIAL THROMBOPLASTIN TIME (BEAKER) (test 75.5 seconds 22.5-36.0 iteh=822) PROTHROMBIN [id number] 19:15:00 Test Item Value Reference Range Comments PROTIME (BEAKER) (test shqk=331) 13.2 seconds 11.7-14.7 INR (BEAKER) (test kicy=139) 1.0 <=5.9 RECOMMENDED COUMADIN/WARFARIN INR THERAPY RANGESSTANDARD DOSE: 2.0 - 3.0 Includes: PROPHYLAXIS forvenous thrombosis, systemic embolization; TREATMENT for venous thrombosis and/or pulmonary embolus.HIGH RISK: Target INR is 2.5-3.5 for patients with mechanical heart valves.POCT-GLUCOSE [id number] 19:10:00 Test Item Value Reference Range Comments POC-GLUCOSE METER (BEAKER) 177 mg/dL 70-110 TESTED AT [address] (test gllx=4012) [place] [address] URINALYSIS W/ [id number] 17:55:00 Test Item Value Reference Range Comments COLOR (BEAKER) (test xwqa=688) Light Yellow CLARITY (BEAKER) (test wqlk=205) Clear SPECIFIC GRAVITY UA (BEAKER) (test ohah=122) 1.008 1.001-1.035 PH UA (BEAKER) (test rebo=882) 7.0 5.0-8.0 PROTEIN UA (BEAKER) (test zdre=068) Negative Negative GLUCOSE UA (BEAKER) (test fjew=570) 100 mg/dL Negative KETONES UA (BEAKER) (test qsck=386) Negative Negative BILIRUBIN UA (BEAKER) (test oigm=499) Negative Negative BLOOD UA (BEAKER) (test uzlw=880) Negative Negative NITRITE UA (BEAKER) (test floz=796) Negative Negative LEUKOCYTE ESTERASE UA (BEAKER) (test iunc=070) Negative Negative UROBILINOGEN UA (BEAKER) (test lvbk=656) 0.2 mg/dL 0.2-1.0 RBC UA (BEAKER) (test urrj=937) 0 /HPF WBC UA (BEAKER) (test puiv=857) 0 /HPF SOURCE(BEAKER) (test sdnw=0626) Urine, Voided [id number] 13:08:00 Test Item Value Reference Range Comments PARTIAL THROMBOPLASTIN TIME (BEAKER) (test 68.3 seconds 22.5-36.0 pnqu=184) POCT-GLUCOSE [id number] 13:01:00 Test Item Value Reference Range Comments POC-GLUCOSE METER (BEAKER) 126 mg/dL 70-110 TESTED AT [address] (test hvdr=5656) [place] [address] POCT-GLUCOSE [id number] 08:08:00 Test Item Value Reference Range Comments POC-GLUCOSE METER (BEAKER) 196 mg/dL 70-110 TESTED AT [address] (test orvg=9342) [place] [address] BASIC METABOLIC [id number] 06:24:00 Test Item Value Reference Range Comments SODIUM (BEAKER) (test 137 meq/L 136-145 nhes=045) POTASSIUM (BEAKER) (test 4.2 meq/L 3.5-5.1 Specimen slightly abdd=711) hemolyzed CHLORIDE (BEAKER) (test 107 meq/L 98-107 kjih=583) CO2 (BEAKER) (test 21 meq/L 22-29 eylb=471) BLOOD UREA NITROGEN 8 mg/dL 7-21 (BEAKER) (test nfui=962) CREATININE (BEAKER) (test 0.78 mg/dL 0.57-1.25 Specimen slightly wmiq=014) hemolyzed GLUCOSE RANDOM (BEAKER) 141 mg/dL 70-105 (test mhau=126) CALCIUM (BEAKER) (test 9.2 mg/dL 8.4-10.2 qbli=497) EGFR (BEAKER) (test mL/min/1.73 sq m INSUFFICIENT CLINICAL DATA giba=1917) TO CALCULATE ESTIMATED GFR. [id number] 06:08:00 Test Item Value Reference Range Comments PARTIAL THROMBOPLASTIN TIME (BEAKER) (test 58.8 seconds 22.5-36.0 fjrd=877) PLATELET [id number] 05:56:00 Test Item Value Reference Range Comments PLATELET COUNT (BEAKER) (test erem=910) 228 K/CU MM 150-450 POCT-GLUCOSE [id number] 05:31:00 Test Item Value Reference Range Comments POC-GLUCOSE METER (BEAKER) 137 mg/dL 70-110 TESTED AT [address] (test nlej=4970) [place] [id number] 23:43:00 Test Item Value Reference Range Comments PARTIAL THROMBOPLASTIN TIME (BEAKER) (test 59.2 seconds 22.5-36.0 vkul=413) POCT-GLUCOSE [id number] 23:35:00 Test Item Value Reference Range Comments POC-GLUCOSE METER (BEAKER) 111 mg/dL 70-110 TESTED AT [address] (test dqot=6667) [place] [address] TROPONIN [id number] 19:23:00 Test Item Value Reference Range Comments TROPONIN I (BEAKER) (test eloe=331) 1.85 ng/mL 0.00-0.03 Troponin I (TnI) levels must be interpreted in the context of the presenting symptoms and the clinical findings. Elevated TnI levels indicate myocardial damage, but are not specific for ischemic heart disease. Elevated TnI levels are seen in patients with other cardiac conditions (including myocarditis and congestive heart failure), and slight TnI elevations occur in patients with other conditions, including sepsis, renal failure, acidosis, acute neurological disease, and persistent tachyarrhythmia.POCT-GLUCOSE [id number] 17:27:00 Test Item Value Reference Range Comments POC-GLUCOSE METER (BEAKER) 163 mg/dL 70-110 TESTED AT [facility] [address] [facility] (test sxfh=0672) [facility] [address] HEMOGLOBIN [id number] 11:03:00 Test Item Value Reference Range Comments HEMOGLOBIN A1C (BEAKER) (test 7.6 % 4.3-6.1 POSSIBLE HEMOGLOBIN S VARIANT hynz=517) NOTED IN HEMOGLOBIN A1C CHROMATOGRAPH. SUGGEST HEMOGLOBIN ELECTROPHORESIS IF CLINICALLY INDICATED. TROPONIN [id number] 09:57:00 Test Item Value Reference Range Comments TROPONIN I (BEAKER) (test bjim=450) 2.11 ng/mL 0.00-0.03 Troponin I (TnI) levels must be interpreted in the context of the presenting symptoms and the clinical findings. Elevated TnI levels indicate myocardial damage, but are not specific for ischemic heart disease. Elevated TnI levels are seen in patients with other cardiac conditions (including myocarditis and congestive heart failure), and slight TnI elevations occur in patients with other conditions, including sepsis, renal failure, acidosis, acute neurological disease, and persistent tachyarrhythmia.[id number] 09:50:00 Test Item Value Reference Range Comments PARTIAL THROMBOPLASTIN TIME (BEAKER) (test 63.2 seconds 22.5-36.0 cnpt=921) TROPONIN [id number] 06:56:00 Test Item Value Reference Range Comments TROPONIN I (BEAKER) (test qcma=117) 2.05 ng/mL 0.00-0.03 Troponin I (TnI) levels must be interpreted in the context of the presenting symptoms and the clinical findings. Elevated TnI levels indicate myocardial damage, but are not specific for ischemic heart disease. Elevated TnI levels are seen in patients with other cardiac conditions (including myocarditis and congestive heart failure), and slight TnI elevations occur in patients with other conditions, including sepsis, renal failure, acidosis, acute neurological disease, and persistent tachyarrhythmia.POCT-GLUCOSE [id number] 06:05:00 Test Item Value Reference Range Comments POC-GLUCOSE METER (BEAKER) 165 mg/dL 70-110 TESTED AT [facility] [address] [facility] (test zynw=3860) [facility] [address] BASIC METABOLIC [id number] 03:05:00 Test Item Value Reference Range Comments SODIUM (BEAKER) (test 140 meq/L 136-145 iqot=620) POTASSIUM (BEAKER) (test 4.3 meq/L 3.5-5.1 Specimen slightly wldu=792) hemolyzed CHLORIDE (BEAKER) (test 104 meq/L 98-107 dyoe=553) CO2 (BEAKER) (test 27 meq/L 22-29 jboz=957) BLOOD UREA NITROGEN 12 mg/dL 7-21 (BEAKER) (test rtcc=895) CREATININE (BEAKER) (test 0.88 mg/dL 0.57-1.25 Specimen slightly badq=575) hemolyzed GLUCOSE RANDOM (BEAKER) 136 mg/dL 70-105 (test jlpw=219) CALCIUM (BEAKER) (test 9.6 mg/dL 8.4-10.2 iezt=832) EGFR (BEAKER) (test mL/min/1.73 sq m INSUFFICIENT CLINICAL DATA rxsn=4923) TO CALCULATE ESTIMATED GFR. LIPID [id number] 03:03:00 Test Item Value Reference Range Comments TRIGLYCERIDES (BEAKER) (test 110 mg/dL Specimen slightly hemolyzed lcct=067) CHOLESTEROL (BEAKER) (test 139 mg/dL Specimen slightly hemolyzed ngwa=611) HDL CHOLESTEROL (BEAKER) (test 41 mg/dL guxq=463) LDL CHOLESTEROL CALCULATED 76 mg/dL (BEAKER) (test vapq=101) Triglyceride Reference Range: Low Risk <150 Borderline 150- 199 High Risk 200-499 Very High Risk >=500Cholesterol Reference Range: Low Risk <200 Borderline 200-239 High Risk > 240HDL Cholesterol Reference Range: Low Risk >=60 High Risk <40LDL Cholesterol Reference Range: Optimal <100 Near Optimal 100-129 Borderline 130-159 High 160-189 Very High >=[id number] 02:56:00 Test Item Value Reference Range Comments PARTIAL THROMBOPLASTIN TIME (BEAKER) (test 41.6 seconds 22.5-36.0 oslu=734) Prior to initiating heparinTSH/FREE T4 IF [id number] 01:12:00 Test Item Value Reference Range Comments THYROID STIMULATING HORMONE (BEAKER) (test 0.93 uIU/mL 0.35-4.94 ogem=768) TROPONIN [id number] 00:51:00 Test Item Value Reference Range Comments TROPONIN I (BEAKER) (test hwlx=137) 1.37 ng/mL 0.00-0.03 Troponin I (TnI) levels must be interpreted in the context of the presenting symptoms and the clinical findings. Elevated TnI levels indicate myocardial damage, but are not specific for ischemic heart disease. Elevated TnI levels are seen in patients with other cardiac conditions (including myocarditis and congestive heart failure), and slight TnI elevations occur in patients with other conditions, including sepsis, renal failure, acidosis, acute neurological disease, and persistent tachyarrhythmia.B-TYPE NATRIURETIC FACTOR (BNP) 00:49:00 Test Item Value Reference Range Comments B-TYPE NATRIURETIC PEPTIDE (BEAKER) (test rqhw=413) 30 pg/mL 0-100 [id number] 00:38:00 Test Item Value Reference Range Comments MAGNESIUM (BEAKER) (test 2.0 mg/dL 1.6-2.6 Specimen slightly hemolyzed jdlv=563) CBC W/PLT COUNT & AUTO [id number] 00:25:00 Test Item Value Reference Range Comments WHITE BLOOD CELL COUNT (BEAKER) (test onnr=835) 7.8 K/ L 3.5-10.5 RED BLOOD CELL COUNT (BEAKER) (test wyhu=665) 5.01 M/ L 4.63-6.08 HEMOGLOBIN (BEAKER) (test rwht=844) 15.8 GM/DL 13.7-17.5 HEMATOCRIT (BEAKER) (test bcpu=469) 45.5 % 40.1-51.0 MEAN CORPUSCULAR VOLUME (BEAKER) (test pxhe=229) 90.8 fL 79.0-92.2 MEAN CORPUSCULAR HEMOGLOBIN (BEAKER) (test 31.5 pg 25.7-32.2 nior=608) MEAN CORPUSCULAR HEMOGLOBIN CONC (BEAKER) (test 34.7 GM/DL 32.3-36.5 cuvg=322) RED CELL DISTRIBUTION WIDTH (BEAKER) (test 12.8 % 11.6-14.4 djej=301) PLATELET COUNT (BEAKER) (test jsjo=242) 273 K/CU MM 150-450 MEAN PLATELET VOLUME (BEAKER) (test kyhg=858) 9.1 fL 9.4-12.4 NUCLEATED RED BLOOD CELLS (BEAKER) (test 0 /100 WBC 0-0 sgav=063) NEUTROPHILS RELATIVE PERCENT (BEAKER) (test 60 % kbme=891) LYMPHOCYTES RELATIVE PERCENT (BEAKER) (test 29 % lena=078) MONOCYTES RELATIVE PERCENT (BEAKER) (test 7 % tjsd=533) EOSINOPHILS RELATIVE PERCENT (BEAKER) (test 3 % tqui=525) BASOPHILS RELATIVE PERCENT (BEAKER) (test 1 % ybya=884) NEUTROPHILS ABSOLUTE COUNT (BEAKER) (test 4.70 K/ L 1.78-5.38 cshb=745) LYMPHOCYTES ABSOLUTE COUNT (BEAKER) (test 2.25 K/ L 1.32-3.57 weyg=879) MONOCYTES ABSOLUTE COUNT (BEAKER) (test 0.58 K/ L 0.30-0.82 moig=705) EOSINOPHILS ABSOLUTE COUNT (BEAKER) (test 0.26 K/ L 0.04-0.54 lufq=961) BASOPHILS ABSOLUTE COUNT (BEAKER) (test 0.04 K/ L 0.01-0.08 rzgd=865) IMMATURE GRANULOCYTES-RELATIVE PERCENT (BEAKER) 0 % 0-1 (test azgg=1688) RAD, CHEST, 2 [id number] 19:00:00Reason for exam:->BACK PAINx 24 hours pervious experience when it gets coldFINAL REPORT Examination: Two view Chest X-ray. CLINICAL HISTORY: Back pain COMPARISON:None. The cardiac silhouette is within normal limits for size. There is atherosclerotic calcification of the aorta. There is no focal consolidation, pleural effusion, pneumothorax or evidence of overt pulmonary edema. There is no acute bony abnormality. IMPRESSION: No acute abnormality. Signed: Skyler Lopezeport Verified Date/Time: 10/14/2018 19:00:02 Reading Location: [address] Reading Room
[2019-04-06 16:10] LABS: Absolute Lymphocytes (CBC) 1.9 K/uL (0.7-4.9); Basophils % 0.6 % (0-1.3); Hematocrit 45.7 % (39.6-49.0); Lymphocytes % 30.4 % (15.3-44.8); MPV 7.5 fL (7.6-11.3); RBC Red Blood Cell Count 5.03 M/uL (4.33-5.43)
[2019-04-06 16:15] LABS: Protime INR 1.02
[2019-04-06] MEDS ORDERED: NITROGLYCERIN 0.4 MG/TAB SL ONE ×2 (16:18→20:46)
[2019-04-06 16:31] LABS: ALT/SGPT 30 U/L (12-78); AST/SGOT 11 U/L (15-37); Albumin 4.3 g/dL (3.4-5.0); Alkaline Phosphatase 46 U/L (45-117); BUN Blood Urea Nitrogen 12 mg/dL (7-18); Bicarbonate 27 mmol/L (21-32); Bilirubin Direct 0.2 mg/dL (0-0.2); Bilirubin Total 0.6 mg/dL (0.2-1.0); Glucose Level 147 mg/dL (74-106); Magnesium 2.2 mg/dL (1.8-2.4); NT PRO-BNP 57 pg/mL (<125); Potassium 3.8 mmol/L (3.5-5.1); Protein, Total 7.6 g/dL (6.4-8.2); Sodium Level 137 mmol/L (136-145); Troponin (Emerg Dept Use Only) < 0.02 ng/mL (0.0-0.045)
--- NOTE | 2019-04-06 17:09 | RAD REPORT ---
EXAM DESCRIPTION: Carol Single View04/06/2019 4:07 pm CLINICAL HISTORY: Chest pain COMPARISON: None FINDINGS: The lungs appear clear of acute infiltrate. The heart is normal size Postsurgical changes involve the chest. IMPRESSION: No acute abnormalities displayed
--- NOTE | 2019-04-06 19:46 | ER ---
Nurse's Notes [facility] Name: Watson Rea Age: 63 yrs Sex: Male : 1955 Arrival Date: 04/06/2019 Time: 15:38 Bed 8 Private MD: Diagnosis: Non-ST elevation (NSTEMI) myocardial infarction Presentation: 04/06 15:39 Presenting complaint: Patient states: i had open heart surgery 6 months ago an today an hj hour ago, i started having pain on my abd, chest area (epigastric area) and upper back area (in between the scapula area) denies N/V; pain 6/10; denies SOB;. Transition of care: patient was not received from another setting of care. Onset of symptoms was April 06, 2019. Risk Assessment: Do you want to hurt yourself or someone else? Patient reports no desire to harm self or others. Initial Sepsis Screen: Does the patient meet any 2 criteria? No. Patient's initial sepsis screen is negative. Does the patient have a suspected source of infection? No. Patient's initial sepsis screen is negative. Care prior to arrival: None. 15:39 Method Of Arrival: Ambulatory 15:39 Acuity: TRENA 2 hj Historical: - Allergies: 15:41 No Known Allergies; hj - Home Meds: 21:34 metformin 500 mg Oral tab 1 tab 2 times per day [Active]; metoprolol tartrate 50 mg rv Oral tab 1 tab 2 times per day [Active]; rovastatin 20 mg nightly [Active]; trajenta daily [Active]; - PMHx: 15:41 Diabetes - NIDDM; Hyperlipidemia; hj - PSHx: 15:41 CABG; hj - Immunization history:: Adult Immunizations up to date. - Social history:: Smoking status: Patient/guardian denies using tobacco. - Ebola Screening: : No symptoms or risks identified at this time. Screenin:02 Abuse screen: Denies threats or abuse. Denies injuries from another. Nutritional aj screening: No deficits noted. Tuberculosis screening: No symptoms or risk factors identified. Fall Risk None identified. Assessment: 16:02 General: Appears in no apparent distress. comfortable, Behavior is calm, cooperative, aj appropriate for age. Pain: Complains of pain in back and abdomen. Neuro: Level of Consciousness is awake, alert, obeys commands, Oriented to person, place, time, situation, Appropriate for age. Cardiovascular: Capillary refill < 3 seconds in bilateral fingers Patient's skin is warm and dry. Respiratory: Airway is patent Respiratory effort is even, unlabored, Respiratory pattern is regular, symmetrical. GI: Reports upper abdominal pain, epigastric pain. Derm: Skin is intact, is healthy with good turgor, Skin is pink, warm \T\ dry. normal. 17:12 Reassessment: INITIAL RESULTS UNREMARKABLE, REPEAT CARDIAC ENZYMES PENDING. bp 17:16 Reassessment: Patient appears in no apparent distress at this time. Patient and/or rv family updated on plan of care and expected duration. Pain level reassessed. Patient is alert, oriented x 3, equal unlabored respirations, skin warm/dry/pink. blood result and radiology report is in. YASH Lino talked to the patient and discussed plan of care. for repeat troponin. 17:17 Pain: Pain radiates to abdomen Pain began gradually. rv 17:30 Reassessment: patient took off the blood pressure cuff and pulse oximeter. rv Vital Signs: 15:42 BP 121 / 84; Pulse 70; Resp 18; Temp 98.1(O); Pulse Ox 100% on R/A; Weight 88.45 kg; hj Height 5 ft. 10 in. (177.80 cm); Pain 6/10; 16:30 BP 114 / 81; Pulse 92; Resp 16; Pulse Ox 96% on R/A; rv 17:11 BP 130 / 79; Pulse 83; Resp 14; Pulse Ox 100% ; bp 19:45 BP 139 / 80; Pulse 70; Resp 18; Temp 97.9; Pulse Ox 96% on R/A; tl2 20:04 BP 124 / 94; Pulse 81; Resp 18; Pulse Ox 100% on R/A; tl2 20:25 BP 133 / 80; Pulse 81; Resp 19; Pulse Ox 97% on R/A; tl2 20:58 BP 131 / 79; Pulse 77; Resp 13; Pulse Ox 99% on R/A; rv 21:34 BP 126 / 81; Pulse 76; Resp 16; Temp 98; Pulse Ox 99% on R/A; rv 15:42 Body Mass Index 27.98 (88.45 kg, 177.80 cm) Vitals: 20:04 Cardiac Rhythm Assessment Sinus rhythm. tl2 ED Course: 15:38 Patient arrived in ED. hj 15:41 Triage completed. hj 15:42 Arm band placed on left wrist. hj 15:44 Holland Longoria PA is PHCP. jr8 15:44 Derrick Martinez MD is Attending Physician. jr8 15:51 Teresa Mccallum, RN is Primary Nurse. aj 16:02 Patient has correct armband on for positive identification. Placed in gown. Bed in low aj position. Call light in reach. Side rails up X 1. learning center instructor on. Pulse ox on. NIBP on. 16:02 Inserted saline lock: 20 gauge in right antecubital area, using aseptic technique. aj Blood collected. Patient maintains SpO2 saturation greater than 95% on room air. 16:07 XRAY Chest (1 view) In Process Unspecified. EDMS 21:34 No provider procedures requiring assistance completed. Patient transferred, IV remains rv in place. Administered Medications: 16:20 Drug: Nitroglycerin 0.4 mg Route: Sublingual; bp 17:20 Follow up: Response: No adverse reaction; Pain is decreased rv 20:00 Drug: Heparin ([place]-Bolus No thrombolytic) - HEParin 60 units/kg {Co-Signature: tl2 rv (Areli Adams RN).} Route: IVP; Site: right antecubital; 21:35 Follow up: Response: No adverse reaction rv 20:01 Drug: Heparin ([place] Drip) 12 units/kg/hr - (HEParin 13409 units, D5W 500 ml) rv {Co-Signature: tl2 (Areli Adams RN).} Route: IV; Rate: calculated rate; Site: right antecubital; 21:35 Follow up: IV Status: Infusion continued upon transfer rv 20:50 Drug: Nitroglycerin 0.4 mg Route: Sublingual; rv 21:35 Follow up: Response: Pain is decreased rv 20:50 Drug: fentaNYL (PF) 25 mcg Route: IVP; Site: left antecubital; rv 21:35 Follow up: Response: Pain is decreased rv Outcome: 19:45 ER care complete, transfer ordered by . jr8 21:34 Transferred by ground EMS to [facility], Transfer form completed. rv X-rays sent w/ patient. 21:34 Condition: stable 21:34 Instructed on the need for transfer. 21:35 Patient left the ED. rv Signatures: Dispatcher [employer] EDTeresa Pena RN Holland Herrmann PA PA jr8 Ketan Oshea RN YAW hj Areli Adams RN YAW tl2 Pelon Montelongo RN RN Emre Hagen RN RN rv Areli Adams RN tl2 Corrections: (The following items were deleted from the chart) 15:44 15:42 Pulse 70bpm; Resp 18bpm; Pulse Ox 100% RA; Temp 98.1F Oral; 88.45 kg; Height 5 hj ft. 10 in.; BMI: 27.9; Pain 6/10; hj 16:07 15:39 Acuity: TRENA 3 hj 20:57 20:57 Nitroglycerin 0.4 mg Sublingual rv rv
--- NOTE | 2019-04-06 19:46 | EDPHYS ---
Physician Documentation [facility] Name: Watson Rea Age: 63 yrs Sex: Male : 1955 Arrival Date: 04/06/2019 Time: 15:38 Bed 8 Private MD: ED Physician Derrick Martinez HPI: 04/06 16:14 This 63 yrs old Male presents to ER via Ambulatory with complaints of Chest jr8 Pain. 16:14 The patient or guardian reports chest pain that is located primarily in the epigastric jr8 area. Onset: acutely, today. The pain radiates to the scapula on both sides, back. Associated signs and symptoms: The patient has no apparent associated signs or symptoms. The chest pain is described as aching, a heaviness, a pressure. Duration: The patient or guardian reports a single episode, that is still ongoing. Modifying factors: The symptoms are alleviated by ASA, 81mg X4. NSAIDS, Naproxen. the symptoms are aggravated by nothing. Severity of pain: At its worst the pain was moderate in the emergency department the pain has improved mildly. The patient has experienced a previous episode. The patient has not recently seen a physician. Triple bypass 6 months ago. Has been doing well and complaint with his medication since surgery. Historical: - Allergies: 15:41 No Known Allergies; hj - Home Meds: 21:34 metformin 500 mg Oral tab 1 tab 2 times per day [Active]; metoprolol tartrate 50 mg rv Oral tab 1 tab 2 times per day [Active]; rovastatin 20 mg nightly [Active]; trajenta daily [Active]; - PMHx: 15:41 Diabetes - NIDDM; Hyperlipidemia; hj - PSHx: 15:41 CABG; hj - Immunization history:: Adult Immunizations up to date. - Social history:: Smoking status: Patient/guardian denies using tobacco. - Ebola Screening: : No symptoms or risks identified at this time. ROS: 16:14 Eyes: Negative for injury, pain, redness, and discharge, ENT: Negative for injury, jr8 pain, and discharge, Neck: Negative for injury, pain, and swelling, Respiratory: Negative for shortness of breath, cough, wheezing, and pleuritic chest pain, Abdomen/GI: Negative for abdominal pain, nausea, vomiting, diarrhea, and constipation, Back: Negative for injury and pain, MS/Extremity: Negative for injury and deformity, Skin: Negative for injury, rash, and discoloration, Neuro: Negative for headache, weakness, numbness, tingling, and seizure. 16:14 Cardiovascular: Positive for chest pain. Exam: 16:14 Eyes: Pupils equal round and reactive to light, extra-ocular motions intact. Lids and jr8 lashes normal. Conjunctiva and sclera are non-icteric and not injected. Cornea within normal limits. Periorbital areas with no swelling, redness, or edema. ENT: Nares patent. No nasal discharge, no septal abnormalities noted. Tympanic membranes are normal and external auditory canals are clear. Oropharynx with no redness, swelling, or masses, exudates, or evidence of obstruction, uvula midline. Mucous membranes moist. Neck: Trachea midline, no thyromegaly or masses palpated, and no cervical lymphadenopathy. Supple, full range of motion without nuchal rigidity, or vertebral point tenderness. No Meningismus. Chest/axilla: Normal chest wall appearance and motion. Nontender with no deformity. No lesions are appreciated. Cardiovascular: Regular rate and rhythm with a normal S1 and S2. No gallops, murmurs, or rubs. Normal PMI, no JVD. No pulse deficits. Respiratory: Lungs have equal breath sounds bilaterally, clear to auscultation and percussion. No rales, rhonchi or wheezes noted. No increased work of breathing, no retractions or nasal flaring. Abdomen/GI: Soft, non-tender, with normal bowel sounds. No distension or tympany. No guarding or rebound. No evidence of tenderness throughout. Back: No spinal tenderness. No costovertebral tenderness. Full range of motion. Skin: Warm, dry with normal turgor. Normal color with no rashes, no lesions, and no evidence of cellulitis. MS/ Extremity: Pulses equal, no cyanosis. Neurovascular intact. Full, normal range of motion. Neuro: Awake and alert, GCS 15, oriented to person, place, time, and situation. Cranial nerves II-XII grossly intact. Motor strength 5/5 in all extremities. Sensory grossly intact. Cerebellar exam normal. Normal gait. Vital Signs: 15:42 BP 121 / 84; Pulse 70; Resp 18; Temp 98.1(O); Pulse Ox 100% on R/A; Weight 88.45 kg; hj Height 5 ft. 10 in. (177.80 cm); Pain 6/10; 16:30 BP 114 / 81; Pulse 92; Resp 16; Pulse Ox 96% on R/A; rv 17:11 BP 130 / 79; Pulse 83; Resp 14; Pulse Ox 100% ; bp 19:45 BP 139 / 80; Pulse 70; Resp 18; Temp 97.9; Pulse Ox 96% on R/A; tl2 20:04 BP 124 / 94; Pulse 81; Resp 18; Pulse Ox 100% on R/A; tl2 20:25 BP 133 / 80; Pulse 81; Resp 19; Pulse Ox 97% on R/A; tl2 20:58 BP 131 / 79; Pulse 77; Resp 13; Pulse Ox 99% on R/A; rv 21:34 BP 126 / 81; Pulse 76; Resp 16; Temp 98; Pulse Ox 99% on R/A; rv 15:42 Body Mass Index 27.98 (88.45 kg, 177.80 cm) MDM: 15:44 Patient medically screened. jr8 19:43 The patient was not given aspirin in the Emergency Department. Patient reports taking [facility] aspirin within the past 24 hours. Data reviewed: vital signs, nurses notes, lab test result(s), EKG, radiologic studies, plain films. Data interpreted: Pulse oximetry: on room air is 100 %. Interpretation: normal. Counseling: I had a detailed discussion with the patient and/or guardian regarding: the historical points, exam findings, and any diagnostic results supporting the discharge/admit diagnosis, lab results, radiology results, the need to transfer to another facility, continuity of care. 19:44 ED course: Patients second troponin is positive. Had Bypass 6 months ago [address] sees cardiology there routinely. Will transfer downtown for continuity of care at this time . 04/06 15:44 Order name: Basic Metabolic Panel; Complete Time: 16:36 [facility] 04/06 15:44 Order name: CBC with Diff; Complete Time: 16:16 [facility] 04/06 15:44 Order name: LFT's; Complete Time: 16:36 [facility] 04/06 15:44 Order name: Magnesium; Complete Time: 16:36 [facility] 08/03 15:44 Order name: NT PRO-BNP; Complete Time: 16:36 8 04/06 15:44 Order name: PT-INR; Complete Time: 16:16 04/06 15:44 Order name: Troponin (emerg Dept Use Only); Complete Time: 16:36 8 04/06 15:44 Order name: XRAY Chest (1 view); Complete Time: 17:19 8 04/06 18:59 Order name: Troponin I: repeat; Complete Time: 19:40 rv 04/06 15:44 Order name: EKG; Complete Time: 15:45 8 04/06 15:44 Order name: Cardiac monitoring; Complete Time: 16:08 04/06 15:44 Order name: EKG - Nurse/Tech; Complete Time: 16:08 04/06 15:44 Order name: IV Saline Lock; Complete Time: 16:09 04/06 15:44 Order name: Labs collected and sent; Complete Time: 16:09 [facility] 04/06 15:44 Order name: O2 Per Protocol; Complete Time: 16: [facility] 04/06 15:44 Order name: O2 Sat Monitoring; Complete Time: 16: Administered Medications: 16:20 Drug: Nitroglycerin 0.4 mg Route: Sublingual; bp 17:20 Follow up: Response: No adverse reaction; Pain is decreased rv 20:00 Drug: Heparin ([place]-Bolus No thrombolytic) - HEParin 60 units/kg {Co-Signature: tl2 rv (Areli Adams RN).} Route: IVP; Site: right antecubital; 21:35 Follow up: Response: No adverse reaction rv 20:01 Drug: Heparin ([place] Drip) 12 units/kg/hr - (HEParin 39064 units, D5W 500 ml) rv {Co-Signature: tl2 (Areli Adams RN).} Route: IV; Rate: calculated rate; Site: right antecubital; 21:35 Follow up: IV Status: Infusion continued upon transfer rv 20:50 Drug: Nitroglycerin 0.4 mg Route: Sublingual; rv 21:35 Follow up: Response: Pain is decreased rv 20:50 Drug: fentaNYL (PF) 25 mcg Route: IVP; Site: left antecubital; rv 21:35 Follow up: Response: Pain is decreased rv Disposition: 04/07 07:06 Co-signature as Attending Physician, Derrick Martinez MD. rn Disposition: 04/06/19 19:45 Transfer ordered to [facility]. Diagnosis is Non-ST elevation (NSTEMI) myocardial infarction. - Reason for transfer: Higher level of care. - Accepting physician is Dr. Bailey . - Condition is Stable. - Problem is new. - Symptoms have improved. Signatures: Dispatcher [employer] EDTeresa Pena, RN RN Derrick Ozuna MD MD rn Roszak, Josh, PA PA jr8 Ketan Oshea, RN RN hj Pelon Montelongo, RN RN bp Emre Sabillon, RN RN rv Areli Adams RN tl2 Corrections: (The following items were deleted from the chart) 04/06 20:01 19:45 04/06/2019 19:45 Transfer ordered to [facility]. Diagnosis is jr8 Non-ST elevation (NSTEMI) myocardial infarction. Reason for transfer: Higher level of care. Accepting physician is Michelle Gomez. Condition is Stable. Problem is new. Symptoms have improved. jr8 21:35 20:01 04/06/2019 19:45 Transfer ordered to [facility]. Diagnosis is rv Non-ST elevation (NSTEMI) myocardial infarction. Reason for transfer: Higher level of care. Accepting physician is Dr. Bailey . Condition is Stable. Problem is new. Symptoms have improved. jr8
[2019-04-06] MEDS ORDERED: HEPARIN 5000 UNIT/ML 1 ML VIAL ONE (19:50)
[2019-04-06] MEDS ORDERED: HEPARIN/D5W 25,000 UNIT/500 ML BAG IV ONE (19:50)
[2019-04-06] MEDS ORDERED: NA CHLORIDE 0.9% 1,000 ML ONE (19:51)
[2019-04-06] MEDS ORDERED: FENTANYL CITR 100 MCG/2 ML ONE (20:40)
--- NOTE | 2019-04-08 07:47 | EKG ---
Test Date: 2019-04-06 Test Time: 15:53:36 [employer]: [facility] MEASUREMENT RESULTS: Intervals: Rate: 85 KS: 136 QRSD: 82 QT: 390 QTc: 464 Wiggins: P: 37 KS: 136 QRS: 73 T: 14 INTERPRETIVE STATEMENTS: Normal sinus rhythm Low voltage QRS ST & T wave abnormality, consider inferior ischemia Abnormal ECG No previous ECG available for comparison Electronically Signed On 04-08-19 07:45:25 CDT by Balta Fish
== END 2019-04-06 21:35 | disposition short-term general hospital (02) ==
LOC: ER 15:36
DX: I21.4 Non-ST elevation (NSTEMI) myocardial infarction (principal); E78.5 Hyperlipidemia, unspecified; E11.9 Type 2 diabetes mellitus without complications; Z95.1 Presence of aortocoronary bypass graft
CPT/HCPCS: 93005; 85025; 80048; 36415; 83735; 85610; 80076; 84484 ×2; 83880; 71045; 99285; J1644; J3010; J7030